=== PATIENT | female | born 1980 | race American Indian/Alaskan Native ===

== ENCOUNTER 2020-07-02 01:02 | Inpatient (IN) | payer MEDICAID ==
--- NOTE | 2020-07-02 01:37 | EDM.PDOC ---
ED HPI GENERAL MEDICAL PROBLEM - General Chief Complaint: Respiratory Problem Stated Complaint: WEAK Time Seen by Provider: 07/02/20 01:36 Source of Information: Reports: Patient, Significant Other History Limitations: Reports: No Limitations - History of Present Illness INITIAL COMMENTS - FREE TEXT/NARRATIVE: Patient presents emergency room today secondary to concerns about increasing shortness of breath difficulty breathing she states that she has been admitted 2 times over the last couple of months to [facility] in [place] that admission was in May and she was discharged on the is related to her acute asthma exacerbation and pneumonia she was sent home last admission on a prednisone taper as well as Levaquin she did have follow-up after discharge approximately 2 weeks ago she states that that time she did have some wheezing but otherwise seem to be improving after that things have slowly gotten worse again she does do home nebulizers in the last 2 to 3 days she states that she has been using them fairly regularly stating that she is using them almost hourly they also have a home park pulse ox monitor and it was reported tonight to be 50% she could not walk because of shortness of breath and difficulty breathing so they came to the ER for further evaluation been tested several times over the last couple months for Covid and has been negative per their report she denies any positive Covid testing [place] any fevers chills chest pain discomfort primary complaint is weakness and difficulty breathing. --per CHANNEL BUSINESS MANAGER upon arrival/placement to monitors noted for p/o-72%RA, required increase to 5L nc before sats >90% PMH--asthma, DM2--insulin therapy Meds--dulera, duonebulizer, novalog sliding scale (no long-term insulin), singulair Allergies--tramadol, cefcazolin Tob--1 pack per week EtOH/Drugs--denies denies pain Pain Score (Numeric/FACES): 0 - Related Data Allergies Allergy/AdvReac Type Severity Reaction Status Date / Time cefprozil Allergy Airway Verified 07/02/20 02:35 Tightness tramadol Allergy Hives Verified 07/02/20 01:50 Home Meds: Home Meds Albuterol [Ventolin HFA] 1 - 2 inh INH ASDIRECTED PRN 07/02/20 [History] Albuterol/Ipratropium [DuoNeb 3.0-0.5 MG/3 ML] 3 ml INH ASDIRECTED PRN 07/02/20 [History] Formoterol/Mometasone [Dulera 100 MCG/5 MCG] 2 inh INH BID 07/02/20 [History] Insulin Aspart [NovoLOG] 2 units SUBCUT ASDIRECTED 07/02/20 [History] Montelukast [Singulair] 10 mg PO DAILY 07/02/20 [History] ED ROS GENERAL - Review of Systems Review Of Systems: See Below Constitutional: Reports: Weakness, Fatigue HEENT: Reports: No Symptoms Respiratory: Reports: Shortness of Breath, Wheezing, Cough Cardiovascular: Reports: Dyspnea on Exertion. Denies: Chest Pain, Palpitations Endocrine: Reports: No Symptoms GI/Abdominal: Reports: No Symptoms : Reports: No Symptoms Musculoskeletal: Reports: No Symptoms Skin: Reports: No Symptoms Neurological: Reports: No Symptoms Psychiatric: Reports: No Symptoms Hematologic/Lymphatic: Reports: No Symptoms Immunologic: Reports: No Symptoms ED EXAM, GENERAL - Physical Exam Exam: See Below Exam Limited By: No Limitations General Appearance: Alert, Moderate Distress (due to respiratory status) Eye Exam: Bilateral Eye: EOMI, Normal Inspection, PERRL Ears: Normal External Exam Nose: Normal Inspection Throat/Mouth: Normal Inspection, Normal Lips, Normal Oropharynx (patient reports dry mouth/throat) Head: Atraumatic, Normocephalic Neck: Normal Inspection, Supple, Non-Tender, Full Range of Motion. No: Lymphadenopathy (R), Lymphadenopathy (L) Respiratory/Chest: Respiratory Distress (patient noted to be conversationally dyspneic/speech somewhat interrupted; noted to be dyspenic/tachypneic; no splinting), Decreased Breath Sounds, Rhonchi, Wheezing Cardiovascular: Normal Peripheral Pulses, No Edema, No Murmur, Tachycardia Peripheral Pulses: 2+: Radial (L), Radial (R) GI/Abdominal: Normal Bowel Sounds, Soft, Non-Tender, No Distention (Female) Exam: Deferred Rectal (Female) Exam: Deferred Extremities: Normal Inspection, Normal Range of Motion, No Pedal Edema Neurological: Alert, Oriented, Normal Cognition, No Motor/Sensory Deficits Psychiatric: Normal Affect, Normal Mood Skin Exam: Warm, Dry, Intact, Normal Color Course - Vital Signs Text/Narrative:: 0247--patient has completed duonebulizer x 1 hour, improvement in respiratory status/oxygen need has decreased to 4L. she reports feeling improved. labs reviewed, noted for low mag--1.6. will give 2g Mag rider which will help re plenish as well as may improve respiratory status/asthma symptoms. COVID/influenza testing is still pending. chest film appears bilateral patchy may be due to poor effort secondary to acute dyspnea or atypical pneumonia. case has been d/w Yuko Bedoya, WATCH ASSEMBLY INSTRUCTOR Mixing Technician for admission, accepts at this time. Due to CPN allergy and reported recent treatment with levaquin will give IV doxycycline for possible infectious process Last Recorded V/S: Last Vital Signs Temp 98.1 F 07/02/20 02:35 Pulse 114 H 07/02/20 02:35 Resp 23 H 07/02/20 02:35 BP 117/63 07/02/20 02:35 Pulse Ox 94 L 07/02/20 02:35 - Orders/Labs/Meds Orders: Active Orders 24 hr Category Date Time Status Peripheral IV Care [RC] . DIRECTED Care 07/02/20 01:53 Active Pulse Oximetry [RC] CONTINUOUS Care 07/02/20 01:52 Active RT Aerosol Therapy [RC] ASDIRECTED Care 07/02/20 01:53 Active Chest 1V Frontal [CR] Urgent Exams 07/02/20 01:51 Taken COVID-19/FLU A+B/RSV [MOLEC] Stat Lab 07/02/20 01:57 Ordered Magnesium Sulfate 2 GM in Water @ 25 MLS/HR (50ml) Med 07/02/20 02:45 Ordered Magnesium Sulfate/Water [Magnesium Sulfate in Water 2 GM/50 ML] 2 gm in 50 ml IV ONETIME Sodium Chloride 0.9% [Saline Flush] Med 07/02/20 01:51 Active 10 ml FLUSH ASDIRECTED PRN Isolation [COMM] Stat Oth 07/02/20 01:57 Ordered Peripheral IV Insertion Adult [OM.PC] Urgent Oth 07/02/20 01:51 Ordered Medication Orders Magnesium Sulfate (Magnesium Sulfate In Water 2 Gm/50 Ml) 2 gm in 50 mls @ 25 mls/hr IV ONETIME ONE Stop: 07/02/20 04:44 Sodium Chloride (Sodium Chloride 0.9% 10 Ml Syringe) 10 ml FLUSH ASDIRECTED PRN PRN Reason: Keep Vein Open Last Admin: 07/02/20 02:22 Dose: 10 ml Documented by: MARIVEL Labs: Laboratory Tests 07/02/20 07/02/20 Range/Units 02:19 02:19 WBC 15.2 H (4.5-11.0) K/uL RBC 4.82 (3.30-5.50) M/uL Hgb 12.8 (12.0-15.0) g/dL Hct 41.1 (36.0-48.0) % MCV 85 (80-98) fL MCH 27 (27-31) pg MCHC 31 L (32-36) % Plt Count 522 H (150-400) K/uL Neut % (Auto) 71 H (36-66) % Lymph % (Auto) 18 L (24-44) % [place] % (Auto) 10 H (2-6) % Eos % (Auto) 1 L (2-4) % Baso % (Auto) 0 (0-1) % Sodium 142 (140-148) mmol/L Potassium 4.1 (3.6-5.2) mmol/L Chloride 101 (100-108) mmol/L Carbon Dioxide 30 (21-32) mmol/L Anion Gap 11.2 (5.0-14.0) mmol/L BUN 6 L (7-18) mg/dL Creatinine 0.6 (0.6-1.0) mg/dL Est Cr Clr Drug Dosing 129.50 mL/min Estimated GFR (MDRD) > 60 (>60) Glucose 104 (74-106) mg/dL Calcium 9.1 (8.5-10.1) mg/dL Magnesium 1.6 L (1.8-2.4) mg/dL Meds: Medications Generic Name Dose Route Start Last Admin Trade Name Freq PRN Reason Stop Dose Admin Magnesium Sulfate 2 gm in 50 mls @ 25 mls/hr 07/02/20 02:45 Magnesium Sulfate In Water 2 Gm/50 Ml IV 07/02/20 04:44 ONETIME ONE Sodium Chloride 10 ml 07/02/20 01:51 07/02/20 02:22 Sodium Chloride 0.9% 10 Ml Syringe FLUSH 10 ml ASDIRECTED PRN Administration Keep Vein Open Discontinued Medications Generic Name Dose Route Start Last Admin Trade Name Freq PRN Reason Stop Dose Admin Albuterol/Ipratropium 3 ml 07/02/20 01:51 07/02/20 02:21 Albuterol/Ipratropium 3.0-0.5 Mg/3 Ml Neb Soln NEB 07/02/20 01:52 3 ml .CONTINUOUS ONE Administration Methylprednisolone Sodium Succinate 125 mg 07/02/20 01:51 07/02/20 02:21 Methylprednisolone Sodium Succinate 125 Mg/2 Ml Sdv IV 07/02/20 01:52 125 mg ONETIME ONE Administration - Radiology Interpretation Free Text/Narrative:: 0250--chest 1V with bilateral scattered changes suggestive of atypical pneumonia process on preliminary reading, final radiology reading pending at this time Departure - Departure Time of Disposition: 02:53 Disposition: Admitted As Inpatient 68 Clinical Impression: Acute asthma exacerbation, Hypoxia, Hypomagnesemia - Discharge Information *PRESCRIPTION DRUG MONITORING PROGRAM REVIEWED*: Not Applicable *COPY OF PRESCRIPTION DRUG MONITORING REPORT IN PATIENT MATT: Not Applicable Referrals: PCP,None [Primary Care Provider] - Forms: ED Department Discharge Sepsis Event Note (ED) - Focused Exam Vital Signs: Vital Signs Temp Pulse Resp BP Pulse Ox 07/02/20 02:35 98.1 F 114 H 23 H 117/63 94 L 07/02/20 02:04 98.4 F 115 H 26 H 110/63 95 07/02/20 01:51 98.4 F 115 H 26 H 110/63 95 - My Orders Last 24 Hours: My Active Orders 07/02/20 01:51 Chest 1V Frontal [CR] Urgent Sodium Chloride 0.9% [Saline Flush] 10 ml FLUSH ASDIRECTED PRN Peripheral IV Insertion Adult [OM.PC] Urgent 07/02/20 01:52 Pulse Oximetry [RC] CONTINUOUS 07/02/20 01:53 Peripheral IV Care [RC] . DIRECTED RT Aerosol Therapy [RC] ASDIRECTED 07/02/20 01:57 COVID-19/FLU A+B/RSV [MOLEC] Stat Isolation [COMM] Stat 07/02/20 02:45 Magnesium Sulfate 2 GM in Water @ 25 MLS/HR (50ml) Magnesium Sulfate/Water [Magnesium Sulfate in Water 2 GM/50 ML] 2 gm in 50 ml IV ONETIME - Assessment/Plan Last 24 Hours: My Active Orders 07/02/20 01:51 Chest 1V Frontal [CR] Urgent Sodium Chloride 0.9% [Saline Flush] 10 ml FLUSH ASDIRECTED PRN Peripheral IV Insertion Adult [OM.PC] Urgent 07/02/20 01:52 Pulse Oximetry [RC] CONTINUOUS 07/02/20 01:53 Peripheral IV Care [RC] . DIRECTED RT Aerosol Therapy [RC] ASDIRECTED 07/02/20 01:57 COVID-19/FLU A+B/RSV [MOLEC] Stat Isolation [COMM] Stat 07/02/20 02:45 Magnesium Sulfate 2 GM in Water @ 25 MLS/HR (50ml) Magnesium Sulfate/Water [Magnesium Sulfate in Water 2 GM/50 ML] 2 gm in 50 ml IV ONETIME
[2020-07-02] MEDS ORDERED: Sodium Chloride 0.9% 10 ML Syringe FLUSH PRN (01:51)
[2020-07-02] MEDS ORDERED: methylPREDNISolone Sodium Succinate 125 MG/2 ML SDV IV ONE (01:51)
[2020-07-02] MEDS ORDERED: Albuterol/Ipratropium 3.0-0.5 MG/3 ML Neb Soln NEB ONE (01:51)
[2020-07-02] MEDS ORDERED: Magnesium Sulfate/Water 2 GM/50 ML BAG IV ONE (02:45)
[2020-07-02] MEDS ORDERED: Doxycycline 100 MG in Sodium Chloride 0.9% 100 ML IV ONE (02:55)
[2020-07-02 02:56] LABS: CORONAVIRUS COVID-19 NAA NEGATIVE (NEGATIVE)
--- NOTE | 2020-07-02 04:25 | PCM.HP.2 ---
H&P History of Present Illness - General Date of Service: 07/02/20 Source of Information: Patient, Provider, RN History Limitations: Reports: No Limitations - History of Present Illness Initial Comments - Free Text/Narative: chief complaint: Asthma- wheezing and shortness of breath Patient presents emergency room today secondary to concerns about increasing shortness of breath difficulty breathing she states that she has been admitted 2 times over the last couple of months to [facility] in [place] that admission was in May and she was discharged on the is related to her acute asthma exacerbation and pneumonia she was sent home last admission on a prednisone taper as well as Levaquin she did have follow-up after discharge approximately 2 weeks ago she states that that time she did have some wheezing but otherwise s eem to be improving after that things have slowly gotten worse again she does do home nebulizers in the last 2 to 3 days she states that she has been using them fairly regularly stating that she is using them almost hourly they also have a home park pulse ox monitor and it was reported tonight to be 50% she could not walk because of shortness of breath and difficulty breathing so they came to the ER for further evaluation been tested several times over the last couple months for Covid and has been negative per their report she denies any positive Covid testing [place] any fevers chills chest pain discomfort primary complaint is weakness and difficulty breathing. --per DIRECTOR OF HOME ECONOMICS upon arrival/placement to monitors noted for p/o-72%RA, required increase to 5L nc before sats >90% PMH--asthma, DM2--insulin therapy Meds--dulera, duonebulizer, novalog sliding scale (no long-term insulin), singulair Allergies--tramadol, cefcazolin Tob--1 pack per week EtOH/Drugs--denies Onset of Symptoms: Reports: Gradual Symptom Onset Date: 06/30/20 Duration of Symptoms: Reports: Getting Worse Location: Reports: Chest, Generalized Quality: Reports: Same as Previous Episode Severity: Moderate Improves with: Reports: Medication Worsens with: Reports: Movement Context: Reports: Other (asthma) Associated Symptoms: Reports: Cough, Fever/Chills (chills without fever), Shortness of Breath denies pain Pain Score (Numeric/FACES): 0 - Related Data Allergies/Adverse Reactions: Allergies Allergy/AdvReac Type Severity Reaction Status Date / Time cefprozil Allergy Airway Verified 07/02/20 02:35 Tightness tramadol Allergy Hives Verified 07/02/20 01:50 Home Medications: Home Meds Albuterol [Ventolin HFA] 1 - 2 inh INH ASDIRECTED PRN 07/02/20 [History] Albuterol/Ipratropium [DuoNeb 3.0-0.5 MG/3 ML] 3 ml INH ASDIRECTED PRN 07/02/20 [History] Formoterol/Mometasone [Dulera 100 MCG/5 MCG] 2 inh INH BID 07/02/20 [History] Insulin Aspart [NovoLOG] 2 units SUBCUT ASDIRECTED 07/02/20 [History] Montelukast [Singulair] 10 mg PO DAILY 07/02/20 [History] Past Medical History HEENT History: Reports: Impaired Vision, Other (See Below) Other HEENT History: glasses Respiratory History: Reports: Asthma, Pneumonia, Recurrent Genitourinary History: Reports: Other (See Below) Other Genitourinary History: dialysis for one month due to decreased kidney function Neurological History: Reports: Concussion Endocrine/Metabolic History: Reports: Diabetes, Type II - Infectious Disease History Infectious Disease History: Reports: Chicken Pox - Past Surgical History GI Surgical History: Reports: Cholecystectomy Social & Family History - Tobacco Use Tobacco Use Status *Q: Current Every Day Tobacco User Years of Tobacco use: 5 Packs/Tins Daily: 0.2 - Recreational Drug Use Recreational Drug Use: No - Living Situation & Occupation Living situation: Reports: Occupation: Unemployed ( to her , lives in [place]. was in Long Term for 10 months, now at home with home monitoring. She did notify DOC about her current admission.) H&P Review of Systems - Review of Systems: Review Of Systems: See Below General: Reports: Chills, Malaise, Fatigue, Decreased Appetite HEENT: Reports: No Symptoms Pulmonary: Reports: Shortness of Breath, Wheezing, Pleuritic Chest Pain, Cough Cardiovascular: Reports: No Symptoms Gastrointestinal: Reports: No Symptoms Genitourinary: Reports: No Symptoms Musculoskeletal: Reports: No Symptoms Skin: Reports: No Symptoms Psychiatric: Reports: No Symptoms Neurological: Reports: No Symptoms Hematologic/Lymphatic: Reports: No Symptoms Immunologic: Reports: No Symptoms Exam - Exam Exam: See Below - Vital Signs Vital Signs: Last Vital Signs Temp 97.9 F 07/02/20 03:40 Pulse 107 H 07/02/20 03:40 Resp 25 H 07/02/20 03:40 BP 130/76 07/02/20 03:40 Pulse Ox 95 07/02/20 03:40 Weight: 200 lb 6.403 oz - Exam Quality Assessment: Supplemental Oxygen (4l via NC), DVT Prophylaxis General: Alert, Oriented, Cooperative, Moderate Distress HEENT: PERRLA, Conjunctiva Clear, EACs Clear, EOMI, Hearing Intact, Mucosa Moist & [place] Neck: Supple, Trachea Midline, 2 Lungs: Decreased Breath Sounds, Crackles, Wheezing (diffuse bilateral wheezing) Cardiovascular: Regular Rate, Regular Rhythm GI/Abdominal Exam: Normal Bowel Sounds, Soft, Non-Tender, No Organomegaly, No Distention, No Abnormal Bruit, No Mass, Pelvis Stable (Female) Exam: Deferred Rectal (Female) Exam: Deferred Back Exam: Normal Inspection, Full Range of Motion, NT Extremities: Normal Inspection, Normal Range of Motion, Non-Tender, No Pedal Edema, Normal Capillary Refill Skin: Warm, Dry, Intact Neurological: Cranial Nerves Intact, Reflexes Equal Bilateral Neuro Extensive - Mental Status: Alert, Oriented x3, Normal Mood/Affect, Normal Cognition Neuro Extensive - Motor, Sensory, Reflexes: CN II-XII Intact, Normal Gait, Normal Reflexes Psychiatric: Alert, Normal Affect, Normal Mood - Patient Data Lab Results Last 24 hrs: Laboratory Results - last 24 hr 07/02/20 07/02/20 07/02/20 Range/Units 01:57 02:19 02:19 WBC 15.2 H (4.5-11.0) K/uL RBC 4.82 (3.30-5.50) M/uL Hgb 12.8 (12.0-15.0) g/dL Hct 41.1 (36.0-48.0) % MCV 85 (80-98) fL MCH 27 (27-31) pg MCHC 31 L (32-36) % Plt Count 522 H (150-400) K/uL Neut % (Auto) 71 H (36-66) % Lymph % (Auto) 18 L (24-44) % [place] % (Auto) 10 H (2-6) % Eos % (Auto) 1 L (2-4) % Baso % (Auto) 0 (0-1) % Sodium 142 (140-148) mmol/L Potassium 4.1 (3.6-5.2) mmol/L Chloride 101 (100-108) mmol/L Carbon Dioxide 30 (21-32) mmol/L Anion Gap 11.2 (5.0-14.0) mmol/L BUN 6 L (7-18) mg/dL Creatinine 0.6 (0.6-1.0) mg/dL Est Cr Clr Drug Dosing 129.50 mL/min Estimated GFR (MDRD) > 60 (>60) Glucose 104 (74-106) mg/dL Calcium 9.1 (8.5-10.1) mg/dL Magnesium 1.6 L (1.8-2.4) mg/dL Influenza Type A RNA Negative (NEGATIVE) RSV RNA (INAAT) Negative (NEGATIVE) Influenza Type B RNA Negative (NEGATIVE) SARS-CoV-2 RNA (HEMAL) Negative (NEGATIVE) Result Diagrams: 07/02/20 02:19 07/02/20 02:19 Sepsis Event Note - Evaluation Sepsis Screening Result: Possible Sepsis Risk - Focused Exam Vital Signs: Vital Signs Temp Pulse Resp BP Pulse Ox 07/02/20 03:40 97.9 F 107 H 25 H 130/76 95 07/02/20 02:35 98.1 F 114 H 23 H 117/63 94 L 07/02/20 02:04 98.4 F 115 H 26 H 110/63 95 07/02/20 01:51 98.4 F 115 H 26 H 110/63 95 - Problem List (1) Acute asthma exacerbation SNOMED Code(s): 342565941 ICD Code: J45.901 - UNSPECIFIED ASTHMA WITH (ACUTE) EXACERBATION Status: Acute Priority: High Current Visit: Yes Qualifiers: Asthma severity: severe (2) Hypomagnesemia SNOMED Code(s): 844557110 ICD Code: E83.42 - HYPOMAGNESEMIA Status: Acute Priority: High Current Visit: Yes (3) Diabetes mellitus type 2 in obese SNOMED Code(s): 94192014 ICD Code: E11.69 - TYPE 2 DIABETES MELLITUS WITH OTHER SPECIFIED COMPLICATION; E66.9 - OBESITY, UNSPECIFIED Status: Acute Priority: High Current Visit: Yes Problem List Initiated/Reviewed/Updated: Yes Orders Last 24hrs: Active Orders 24 hr Category Date Time Status Peripheral IV Care [RC] . DIRECTED Care 07/02/20 01:53 Active Pulse Oximetry [RC] CONTINUOUS Care 07/02/20 01:52 Active RT Aerosol Therapy [RC] ASDIRECTED Care 07/02/20 01:53 Active Chest 1V Frontal [CR] Urgent Exams 07/02/20 01:51 Taken Magnesium Sulfate/Water [Magnesium Sulfate in Water 2 Med 07/02/20 02:45 Active GM/50 ML] 2 gm in 50 ml IV ONETIME Sodium Chloride 0.9% [Saline Flush] Med 07/02/20 01:51 Active 10 ml FLUSH ASDIRECTED PRN Isolation [COMM] Stat Oth 07/02/20 01:57 Ordered Peripheral IV Insertion Adult [OM.PC] Urgent Oth 07/02/20 01:51 Ordered Medication Orders Magnesium Sulfate (Magnesium Sulfate In Water 2 Gm/50 Ml) 2 gm in 50 mls @ 25 mls/hr IV ONETIME ONE Stop: 07/02/20 04:44 Sodium Chloride (Sodium Chloride 0.9% 10 Ml Syringe) 10 ml FLUSH ASDIRECTED PRN PRN Reason: Keep Vein Open Last Admin: 07/02/20 02:22 Dose: 10 ml Documented by: MARIVEL Assessment/Plan Comment:: Assessment/Plan Comment:: ASSESSMENT AND PLAN OF CARE Asthma exacerbation with pneumonia -Admit to [address] [place] [address] for further monitoring -IV Fluids for rehydration NS at 125 mL per hour -IV Antibiotic- Doxycycline 100 mg IV every 12 hours -oxygen to keep sats greater than 95% -IV Solumedrol 125mg now, then 40 mg every 8 hours f -schedule Duo nebs every 6 hours, Albuterol nebs every 4 hours prn -Advise to notify nurses of any chest pain or other symptoms Hypomagnesium - given IV Magnesium 2 grams once -recheck Magnesium Diabetes type 2- in obesity -sliding scale medium dose -bedside blood glucose before meals and at bedtime Maintenance issues -Orders home meds: chronic medication -Nutrition: consisisten charb diet -Ramos catheter -not indicated at this time -DVT Lovenox 30 mg subcut -PPI - IV Protonix 40mg daily Tobacco dependence - declincs nicotine patches and nicotine gum CODE STATUS: FULL Admission status: Admit to [address] [place] [address] Admission justification. This patient will be admitted for inpatient services and is medically appropriate meeting medical necessity for inpatient admission as outlined in my documentation. I reasonably expect the patient will require inpatient services that span. Time over 2 midnights. I reasonably expect this patient to be discharged or transferred within 96 hours after admission to the critical [facility]. Disposition: home with Family Primary care provider: Dr. Brent Palacios, [facility] Hospitalist: Dr. Hayden - Mortality Measure Prognosis:: Good
[2020-07-02] MEDS ORDERED: Bisacodyl 5 MG Tab PO PRN (05:09)
[2020-07-02] MEDS ORDERED: LORazepam 2 MG/ML SDV IV PRN ×2 (05:09→14:50)
[2020-07-02] MEDS ORDERED: Sodium Chloride 0.9% 1,000 ML IV SCH (05:09)
[2020-07-02] MEDS ORDERED: Ondansetron 4 MG/2 ML SDV IV PRN (05:09)
[2020-07-02] MEDS ORDERED: Ondansetron 4 MG Tab.DIS PO PRN (05:09)
[2020-07-02] MEDS ORDERED: Acetaminophen 325 MG Tab PO PRN (05:09)
[2020-07-02] MEDS ORDERED: Docusate Sodium 100 MG Cap PO PRN (05:09)
[2020-07-02] MEDS ORDERED: Morphine 2 MG/ML SYRINGE IVPUSH PRN (05:09)
[2020-07-02] MEDS ORDERED: Ibuprofen 800 MG Tab PO PRN (05:09)
[2020-07-02] MEDS ORDERED: Acetaminophen/HYDROcodone 325-5 MG Tab PO PRN (05:09)
[2020-07-02] MEDS ORDERED: Albuterol/Ipratropium 3.0-0.5 MG/3 ML Neb Soln NEB SCH (06:00)
[2020-07-02] MEDS: Insulin Lispro 100 Unit/ML 3 ML KwikPen SUBCUT SCH ×4 (08:29→21:14)
[2020-07-02] MEDS: Formoterol/Mometasone 100-5 MCG 8.8 GM Inhaler IH SCH ×2 (08:30→21:14)
[2020-07-02] MEDS ORDERED: Pantoprazole 40 MG Vial IV SCH (09:00)
[2020-07-02] MEDS ORDERED: Levofloxacin/Dextrose 5%-Water 750 MG in Premix Bag 1 BAG IV SCH (09:00)
--- NOTE | 2020-07-02 09:16 | CR ---
CHEST: Portable 07/02/2020 at 2:15 AM CLINICAL HISTORY:SOB, wheezing COMPARISON:None FINDINGS: There is a right upper lobe infiltrate. There is diffuse prominence of the lung markings with a predominantly interstitial pattern. There are no effusions. Heart and pulmonary vascular are normal. IMPRESSION: Right upper lobe pneumonic infiltrate with diffuse increase in lung markings suggests superimposed diffuse pneumonitis
[2020-07-02] MEDS: methylPREDNISolone Sodium Succinate 40 MG/1 ML SDV IVPUSH SCH ×3 (09:51→21:13)
[2020-07-02] MEDS: Enoxaparin 40 MG/0.4 ML Syringe SUBCUT SCH (09:51)
[2020-07-02] MEDS: Lactobacillus Rhamnosus GG (Probiotic) Cap PO SCH ×2 (09:51→21:14)
[2020-07-02] MEDS: Montelukast 10 MG Tab PO SCH (09:51)
[2020-07-02] MEDS: Piperacillin/Tazobactam/Dext 3.375 GM in Premix Bag 1 BAG IV SCH ×3 (09:54→21:27)
[2020-07-02] MEDS: Albuterol/Ipratropium 3.0-0.5 MG/3 ML Neb Soln NEB SCH ×3 (10:38→21:13)
[2020-07-02] MEDS: Levofloxacin/Dextrose 5%-Water 750 MG in Premix Bag 1 BAG IV SCH (10:54)
[2020-07-02] MEDS ORDERED: Sodium Chloride 0.9% 10 ML Syringe FLUSH ONE (11:42)
[2020-07-02] MEDS ORDERED: Iopamidol 612 MG/ML 100 ML Bottle IV SCH (11:45)
[2020-07-02] MEDS ORDERED: Sodium Chloride 0.9% 75 ML IV SCH (11:45)
--- NOTE | 2020-07-02 12:52 | CT ---
Chest w Cont CLINICAL HISTORY: Recurrent pneumonia, hypoxia TECHNIQUE: Axial scans were obtained from the thoracic inlet to the lung bases following IV infusion of iodinated contrast. Auto dosage reduction and iterative reconstructrion techniques employed. COMPARISON: None. FINDINGS: Lung window images shows scattered patchy groundglass opacities diffusely throughout both lung acuna. There are no areas of consolidation. No pulmonary mass is identified. There is a pleural-based 7 mm nodule in the right middle lobe laterally. There is an 8 x 11 mm pleural-based noncalcified subsolid nodule in the lingula. Mediastinal window images show some mildly prominent lymph nodes in both lingula. These are likely reactive nodes. No suspicious lymphadenopathy is identified. The pulmonary arteries are less than optimally opacified. No obvious filling defects are identified. The aorta is free of aneurysm or dissection. Scans into the upper abdomen show no mass or adenopathy. IMPRESSION: Diffuse groundglass opacifications throughout both lung acuna consistent with pneumonitis Pleural-based nodular densities described above. Follow-up per Fleischner Society criteria recommended FLEISCHNER CRITERIA (2017) Incidental Pulmonary Nodule Follow-up Nodule size 6-8 mm -single nodule in low risk patient: CT at 6-12 months, then consider CT at 18-24 months -multiple nodules in low risk patient: CT at 3-6 months, then consider CT at 18-24 months -single nodule in high risk patient: CT at 6-12 months, then CT at 18-24 months -multiple nodules in high risk patient: CT at 3-6 months, then CT at 18-24 months Implications for Patient Care 1. These guidelines apply to incidental nodules, which can be managed according to the specific recommendations. 2. These guidelines do not apply to patients younger than 35 years, immunocompromised patients, or patients with cancer. 3. For lung cancer screening, adherence to the existing [employer] Lung CT Screening Reporting and Data System (Lung-RADS) guidelines is recommended.
--- NOTE | 2020-07-02 14:59 | PCM.PN ---
- General Info Date of Service: 07/02/20 Subjective Update: Ms. Galarza is a 39-year-old woman who was admitted through the emergency department with weakness, shortness of breath, hypoxia, secondary to bilateral pneumonia and asthma exacerbation. This is her third admission over the past few months with similar symptoms. She reports that after hospitalization she feels well for a few days and then redevelops progressive shortness of breath and cough. CT scan obtained today shows bilateral diffuse groundglass infiltrates. Functional Status: Reports: Tolerating Diet, Urinating - Review of Systems General: Reports: Weakness, Fatigue. Denies: Fever, Chills Pulmonary: Reports: Shortness of Breath, Cough, Wheezing. Denies: Pleuritic Chest Pain, Sputum, Hemoptysis Cardiovascular: Reports: Dyspnea on Exertion. Denies: Chest Pain, Palpitations, Orthopnea, PND, Edema, Lightheadedness Gastrointestinal: Reports: No Symptoms Genitourinary: Reports: No Symptoms - Patient Data Vitals - Most Recent: Last Vital Signs Temp 97.5 F 07/02/20 07:00 Pulse 102 H 07/02/20 10:39 Resp 18 07/02/20 07:00 BP 128/77 07/02/20 07:00 Pulse Ox 93 L 07/02/20 13:20 Weight - Most Recent: 198 lb 6.656 oz I&O - Last 24 Hours: Intake & Output 07/01/20 07/02/20 07/02/20 22:59 06:59 14:59 Intake Total 610 Balance 610 Lab Results Last 24 Hours: Laboratory Results - last 24 hr 07/02/20 07/02/20 07/02/20 Range/Units 01:57 02:19 02:19 WBC 15.2 H (4.5-11.0) K/uL RBC 4.82 (3.30-5.50) M/uL Hgb 12.8 (12.0-15.0) g/dL Hct 41.1 (36.0-48.0) % MCV 85 (80-98) fL MCH 27 (27-31) pg MCHC 31 L (32-36) % Plt Count 522 H (150-400) K/uL Neut % (Auto) 71 H (36-66) % Lymph % (Auto) 18 L (24-44) % Bulloch % (Auto) 10 H (2-6) % Eos % (Auto) 1 L (2-4) % Baso % (Auto) 0 (0-1) % Sodium 142 (140-148) mmol/L Potassium 4.1 (3.6-5.2) mmol/L Chloride 101 (100-108) mmol/L Carbon Dioxide 30 (21-32) mmol/L Anion Gap 11.2 (5.0-14.0) mmol/L BUN 6 L (7-18) mg/dL Creatinine 0.6 (0.6-1.0) mg/dL Est Cr Clr Drug Dosing 129.50 mL/min Estimated GFR (MDRD) > 60 (>60) Glucose 104 (74-106) mg/dL POC Glucose (74-106) MG/DL Calcium 9.1 (8.5-10.1) mg/dL Magnesium 1.6 L (1.8-2.4) mg/dL Influenza Type A RNA Negative (NEGATIVE) RSV RNA (INAAT) Negative (NEGATIVE) Influenza Type B RNA Negative (NEGATIVE) SARS-CoV-2 RNA (HEMAL) Negative (NEGATIVE) 07/02/20 07/02/20 07/02/20 Range/Units 07:39 11:25 11:25 WBC (4.5-11.0) K/uL RBC (3.30-5.50) M/uL Hgb (12.0-15.0) g/dL Hct (36.0-48.0) % MCV (80-98) fL MCH (27-31) pg MCHC (32-36) % Plt Count (150-400) K/uL Neut % (Auto) (36-66) % Lymph % (Auto) (24-44) % Bulloch % (Auto) (2-6) % Eos % (Auto) (2-4) % Baso % (Auto) (0-1) % Sodium (140-148) mmol/L Potassium (3.6-5.2) mmol/L Chloride (100-108) mmol/L Carbon Dioxide (21-32) mmol/L Anion Gap (5.0-14.0) mmol/L BUN (7-18) mg/dL Creatinine (0.6-1.0) mg/dL Est Cr Clr Drug Dosing mL/min Estimated GFR (MDRD) (>60) Glucose (74-106) mg/dL POC Glucose 176 H TNP 168 H (74-106) MG/DL Calcium (8.5-10.1) mg/dL Magnesium (1.8-2.4) mg/dL Influenza Type A RNA (NEGATIVE) RSV RNA (INAAT) (NEGATIVE) Influenza Type B RNA (NEGATIVE) SARS-CoV-2 RNA (HEMAL) (NEGATIVE) Med Orders - Current: Current Medications Acetaminophen (Acetaminophen 325 Mg Tab) 650 mg PO Q4H PRN PRN Reason: Pain (Mild 1-3)/fever Hydrocodone Bitart/Acetaminophen (Acetaminophen/Hydrocodone 325-5 Mg Tab) 1 tab PO Q4H PRN PRN Reason: Pain (moderate 4-6) Albuterol (Albuterol 0.083% 2.5 Mg/3 Ml Neb Soln) 2.5 mg NEB Q4H PRN PRN Reason: Shortness Of Breath/wheezing Albuterol/Ipratropium (Albuterol/Ipratropium 3.0-0.5 Mg/3 Ml Neb Soln) 3 ml NEB QIDRT [facility] Last Admin: 07/02/20 14:37 Dose: 3 ml Documented by: Bisacodyl (Bisacodyl 5 Mg Tab) 5 mg PO DAILY PRN PRN Reason: Constipation Docusate Sodium (Docusate Sodium 100 Mg Cap) 100 mg PO BID PRN PRN Reason: Constipation Enoxaparin Sodium (Enoxaparin 40 Mg/0.4 Ml Syringe) 40 mg SUBCUT DAILY [facility] Last Admin: 07/02/20 09:51 Dose: 40 mg Documented by: Piperacillin/Tazobactam/ (Dextrose 3.375 gm/ Premix) 50 mls @ 100 mls/hr IV Q6H [facility] Last Admin: 07/02/20 09:54 Dose: 100 mls/hr Documented by: Levofloxacin/Dextrose 750 mg/ (Premix) 150 mls @ 100 mls/hr IV Q24H [facility] Last Admin: 07/02/20 10:54 Dose: 100 mls/hr Documented by: Ibuprofen (Ibuprofen 800 Mg Tab) 800 mg PO Q6H PRN PRN Reason: Pain (mild 1-3) Insulin Human Lispro (Insulin Lispro 100 Unit/Ml 3 Ml Kwikpen) 0 unit SUBCUT QIDACANDBED [facility]; Protocol Last Admin: 07/02/20 12:04 Dose: 1 unit Documented by: Lactobacillus Rhamnosus (Lactobacillus Rhamnosus Gg (Probiotic) Cap) 1 cap PO BID [facility] Last Admin: 07/02/20 09:51 Dose: 1 cap Documented by: Lorazepam (Lorazepam 2 Mg/Ml Sdv) 0.5 mg IV Q4H PRN PRN Reason: Agitation Methylprednisolone Sodium Succinate (Methylprednisolone Sodium Succinate 40 Mg/1 Ml Sdv) 40 mg IVPUSH Q6H [facility] Last Admin: 07/02/20 09:51 Dose: 40 mg Documented by: Mometasone Furoate/Formoterol Fumar (Formoterol/Mometasone 100-5 Mcg 8.8 Gm Inhaler) 2 puff IH BIDRT [facility] Last Admin: 07/02/20 08:30 Dose: 2 puff Documented by: Montelukast Sodium (Montelukast 10 Mg Tab) 10 mg PO DAILY [facility] Last Admin: 07/02/20 09:51 Dose: 10 mg Documented by: Morphine Sulfate (Morphine 2 Mg/Ml Syringe) 2 mg IVPUSH Q2H PRN PRN Reason: Pain (severe 7-10) Ondansetron HCl (Ondansetron 4 Mg Tab.Dis) 4 mg PO Q6H PRN PRN Reason: Nausea able to take PO Ondansetron HCl (Ondansetron 4 Mg/2 Ml Sdv) 4 mg IV Q4H PRN PRN Reason: Nausea/Vomiting Pantoprazole Sodium (Pantoprazole 40 Mg Tab.Cr) 40 mg PO ACBREAKFAST [facility] Sodium Chloride (Sodium Chloride 0.9% 10 Ml Syringe) 10 ml FLUSH ASDIRECTED PRN PRN Reason: Keep Vein Open Last Admin: 07/02/20 02:22 Dose: 10 ml Documented by: Discontinued Medications Albuterol/Ipratropium (Albuterol/Ipratropium 3.0-0.5 Mg/3 Ml Neb Soln) 3 ml NEB .CONTINUOUS ONE Stop: 07/02/20 01:52 Last Admin: 07/02/20 02:21 Dose: 3 ml Documented by: Albuterol/Ipratropium (Albuterol/Ipratropium 3.0-0.5 Mg/3 Ml Neb Soln) 3 ml NEB QID [facility] Last Admin: 07/02/20 05:48 Dose: 3 ml Documented by: Magnesium Sulfate (Magnesium Sulfate In Water 2 Gm/50 Ml) 2 gm in 50 mls @ 25 mls/hr IV ONETIME ONE Stop: 07/02/20 04:44 Last Admin: 07/02/20 04:42 Dose: 25 mls/hr Documented by: Doxycycline Hyclate 100 mg/ (Sodium Chloride) 100 mls @ 100 mls/hr IV ONETIME ONE Stop: 07/02/20 03:54 Last Admin: 07/02/20 03:38 Dose: 100 mls/hr Documented by: Doxycycline Hyclate 100 mg/ (Sodium Chloride) 100 mls @ 100 mls/hr IV Q12H [facility] Sodium Chloride (Normal Saline) 1,000 mls @ 125 mls/hr IV ASDIRECTED [facility] Last Admin: 07/02/20 05:49 Dose: 125 mls/hr Documented by: Levofloxacin/Dextrose 750 mg/ (Premix) 150 mls @ 100 mls/hr IV Q24H [facility] Sodium Chloride (Normal Saline) 75 mls @ 3 mls/sec IV ASDIRECTED [facility] Stop: 07/02/20 11:46 Last Admin: 07/02/20 12:22 Dose: 3 mls/sec Documented by: Iopamidol (Iopamidol 612 Mg/Ml 100 Ml Bottle) 100 ml IV . DIRECTED [facility] Stop: 07/02/20 11:46 Last Admin: 07/02/20 12:23 Dose: 100 ml Documented by: Lorazepam (Lorazepam 2 Mg/Ml Sdv) 1 mg IV Q6H PRN PRN Reason: Agitation Methylprednisolone Sodium Succinate (Methylprednisolone Sodium Succinate 125 Mg/2 Ml Sdv) 125 mg IV ONETIME ONE Stop: 07/02/20 01:52 Last Admin: 07/02/20 02:21 Dose: 125 mg Documented by: Pantoprazole Sodium (Pantoprazole 40 Mg Vial) 40 mg IV DAILY [facility] Last Admin: 07/02/20 09:51 Dose: 40 mg Documented by: Sodium Chloride (Sodium Chloride 0.9% 10 Ml Syringe) 10 ml FLUSH ONETIME ONE Stop: 07/02/20 11:43 Last Admin: 07/02/20 12:23 Dose: 10 ml Documented by: - Exam Quality Assessment: Supplemental Oxygen, DVT Prophylaxis General: Alert, Oriented, Cooperative, Moderate Distress Lungs: Decreased Breath Sounds, Rhonchi, Wheezing. No: Crackles, Rales Cardiovascular: Regular Rate, Regular Rhythm, No Murmurs GI/Abdominal Exam: Soft, Non-Tender, No Organomegaly, No Distention Extremities: Non-Tender, No Pedal Edema - Patient Data Lab Results Last 24 hrs: Laboratory Results - last 24 hr 07/02/20 07/02/20 07/02/20 Range/Units 01:57 02:19 02:19 WBC 15.2 H (4.5-11.0) K/uL RBC 4.82 (3.30-5.50) M/uL Hgb 12.8 (12.0-15.0) g/dL Hct 41.1 (36.0-48.0) % MCV 85 (80-98) fL MCH 27 (27-31) pg MCHC 31 L (32-36) % Plt Count 522 H (150-400) K/uL Neut % (Auto) 71 H (36-66) % Lymph % (Auto) 18 L (24-44) % Bulloch % (Auto) 10 H (2-6) % Eos % (Auto) 1 L (2-4) % Baso % (Auto) 0 (0-1) % Sodium 142 (140-148) mmol/L Potassium 4.1 (3.6-5.2) mmol/L Chloride 101 (100-108) mmol/L Carbon Dioxide 30 (21-32) mmol/L Anion Gap 11.2 (5.0-14.0) mmol/L BUN 6 L (7-18) mg/dL Creatinine 0.6 (0.6-1.0) mg/dL Est Cr Clr Drug Dosing 129.50 mL/min Estimated GFR (MDRD) > 60 (>60) Glucose 104 (74-106) mg/dL POC Glucose (74-106) MG/DL Calcium 9.1 (8.5-10.1) mg/dL Magnesium 1.6 L (1.8-2.4) mg/dL Influenza Type A RNA Negative (NEGATIVE) RSV RNA (INAAT) Negative (NEGATIVE) Influenza Type B RNA Negative (NEGATIVE) SARS-CoV-2 RNA (HEMAL) Negative (NEGATIVE) 07/02/20 07/02/20 07/02/20 Range/Units 07:39 11:25 11:25 WBC (4.5-11.0) K/uL RBC (3.30-5.50) M/uL Hgb (12.0-15.0) g/dL Hct (36.0-48.0) % MCV (80-98) fL MCH (27-31) pg MCHC (32-36) % Plt Count (150-400) K/uL Neut % (Auto) (36-66) % Lymph % (Auto) (24-44) % Bulloch % (Auto) (2-6) % Eos % (Auto) (2-4) % Baso % (Auto) (0-1) % Sodium (140-148) mmol/L Potassium (3.6-5.2) mmol/L Chloride (100-108) mmol/L Carbon Dioxide (21-32) mmol/L Anion Gap (5.0-14.0) mmol/L BUN (7-18) mg/dL Creatinine (0.6-1.0) mg/dL Est Cr Clr Drug Dosing mL/min Estimated GFR (MDRD) (>60) Glucose (74-106) mg/dL POC Glucose 176 H TNP 168 H (74-106) MG/DL Calcium (8.5-10.1) mg/dL Magnesium (1.8-2.4) mg/dL Influenza Type A RNA (NEGATIVE) RSV RNA (INAAT) (NEGATIVE) Influenza Type B RNA (NEGATIVE) SARS-CoV-2 RNA (HEMAL) (NEGATIVE) Result Diagrams: 07/02/20 02:19 07/02/20 02:19 Sepsis Event Note - Evaluation Sepsis Screening Result: Sepsis Risk - Focused Exam Vital Signs: Vital Signs Temp Temp Pulse Resp BP Pulse Ox 07/02/20 13:20 93 L 07/02/20 10:39 102 H 07/02/20 07:00 97.5 F 108 H 18 128/77 92 L 07/02/20 05:45 107 H 07/02/20 05:29 97.3 F 102 H 18 126/71 91 L 07/02/20 03:40 97.9 F 107 H 25 H 130/76 95 - Problem List Review Problem List Initiated/Reviewed/Updated: Yes - My Orders Last 24 Hours: My Active Orders 07/02/20 09:00 Lactobacillus Rhamnosus GG [Culturelle] 1 cap PO BID Piperacillin/Tazobactam/Dext [Zosyn in Dextrose Iso-Osmotic 3.375 GM/50 ML] 3.375 gm Premix Bag 1 bag IV Q6H 07/02/20 10:00 Levofloxacin/Dextrose 5%-Water [Levaquin in D5W 750 MG/150 ML] 750 mg Premix Bag 1 bag IV Q24H 07/02/20 14:49 Convert IV to Saline Lock [OM.PC] Routine 07/02/20 14:50 LORazepam [Ativan] 0.5 mg IV Q4H PRN 07/03/20 05:00 CBC WITH AUTO DIFF [HEME] Timed COMPREHENSIVE METABOLIC PN,CMP [CHEM] Timed MAGNESIUM [CHEM] Timed - Plan Plan:: ASSESSMENT AND PLAN Asthma exacerbation with pneumonia-progressive increase in shortness of breath with cough since her last admission 1 month ago. On admission was noted to be significantly hypoxic with oxygen saturation of 70%. CT scan of the chest shows diffuse bilateral pulmonary infiltrates. -Saline lock IV -IV Antibiotic-levofloxacin and Zosyn -oxygen to keep sats greater than 95% -IV Solumedrol 40 mg every 8 hours -schedule Duo nebs every 6 hours, Albuterol nebs every 4 hours prn -Advise to notify nurses of any chest pain or other symptoms Hypomagnesium - given IV Magnesium 2 grams once -recheck Magnesium in a.m. Diabetes type 2- in obesity -sliding scale medium dose -bedside blood glucose before meals and at bedtime Maintenance issues -Nutrition: consistent charb diet -Ramos catheter -not indicated at this time -DVT Lovenox 30 mg subcut -PPI - IV Protonix 40mg daily Tobacco dependence - declincs nicotine patches and nicotine gum CODE STATUS: FULL Admission status: Admit to [address] [place] [address]. This patient will be admitted for inpatient services and is medically appropriate meeting medical necessity for inpatient admission as outlined in my documentation. I reasonably expect the patient will require inpatient services that span. Time over 2 midnights. I reasonably expect this patient to be discharged or transferred within 96 hours after admission to the critical access hospital. Disposition: home with Family Primary care provider: Dr. Brent Palacios, [facility] Hospitalist: Dr. Hayden
[2020-07-02] MEDS ORDERED: Doxycycline 100 MG in Sodium Chloride 0.9% 100 ML IV SCH (16:00)
[2020-07-03] MEDS: methylPREDNISolone Sodium Succinate 40 MG/1 ML SDV IVPUSH SCH ×4 (03:25→20:15)
[2020-07-03] MEDS: Piperacillin/Tazobactam/Dext 3.375 GM in Premix Bag 1 BAG IV SCH ×4 (03:31→20:13)
[2020-07-03] MEDS: Albuterol 0.083% 2.5 MG/3 ML Neb Soln NEB PRN ×2 (03:35→22:30)
[2020-07-03] MEDS: Albuterol/Ipratropium 3.0-0.5 MG/3 ML Neb Soln NEB SCH ×4 (07:20→20:12)
[2020-07-03] MEDS: Formoterol/Mometasone 100-5 MCG 8.8 GM Inhaler IH SCH ×2 (07:21→20:13)
[2020-07-03] MEDS: Insulin Lispro 100 Unit/ML 3 ML KwikPen SUBCUT SCH ×4 (07:58→21:34)
[2020-07-03] MEDS: Pantoprazole 40 MG Tab.CR PO SCH (07:59)
[2020-07-03] MEDS: Lactobacillus Rhamnosus GG (Probiotic) Cap PO SCH ×2 (09:46→20:15)
[2020-07-03] MEDS: Montelukast 10 MG Tab PO SCH (09:46)
[2020-07-03] MEDS: Enoxaparin 40 MG/0.4 ML Syringe SUBCUT SCH (09:47)
[2020-07-03] MEDS: Levofloxacin/Dextrose 5%-Water 750 MG in Premix Bag 1 BAG IV SCH (10:52)
--- NOTE | 2020-07-03 16:41 | PCM.PN ---
- General Info Date of Service: 07/03/20 Subjective Update: Ms. Handley continues to require supplemental oxygen. She reports subjectively that she is feeling better with less shortness of breath and cough. She has remained afebrile and vital signs have been within desired range. Functional Status: Reports: Tolerating Diet, Urinating - Review of Systems General: Reports: Weakness, Fatigue. Denies: Fever, Chills Pulmonary: Reports: Shortness of Breath, Cough, Wheezing. Denies: Pleuritic Chest Pain, Sputum, Hemoptysis Cardiovascular: Reports: Dyspnea on Exertion. Denies: Chest Pain, Palpitations, Orthopnea, PND, Edema, Lightheadedness Gastrointestinal: Reports: No Symptoms - Patient Data Vitals - Most Recent: Last Vital Signs Temp 96.8 F L 07/03/20 11:03 Pulse 90 07/03/20 15:36 Resp 16 07/03/20 11:03 BP 109/67 07/03/20 11:03 Pulse Ox 95 07/03/20 15:36 Weight - Most Recent: 198 lb 6.656 oz I&O - Last 24 Hours: Intake & Output 07/03/20 07/03/20 07/03/20 06:59 14:59 22:59 Intake Total 50 500 Balance 50 500 Lab Results Last 24 Hours: Laboratory Results - last 24 hr 07/02/20 07/02/20 07/02/20 Range/Units 11:30 16:30 21:08 WBC (4.5-11.0) K/uL RBC (3.30-5.50) M/uL Hgb (12.0-15.0) g/dL Hct (36.0-48.0) % MCV (80-98) fL MCH (27-31) pg MCHC (32-36) % Plt Count (150-400) K/uL Neut % (Auto) (36-66) % Lymph % (Auto) (24-44) % Geary % (Auto) (2-6) % Eos % (Auto) (2-4) % Baso % (Auto) (0-1) % Sodium (140-148) mmol/L Potassium (3.6-5.2) mmol/L Chloride (100-108) mmol/L Carbon Dioxide (21-32) mmol/L Anion Gap (5.0-14.0) mmol/L BUN (7-18) mg/dL Creatinine (0.6-1.0) mg/dL Est Cr Clr Drug Dosing mL/min Estimated GFR (MDRD) (>60) Glucose (74-106) mg/dL POC Glucose TNP TNP 175 H Calcium (8.5-10.1) mg/dL Magnesium (1.8-2.4) mg/dL Total Bilirubin (0.2-1.0) mg/dL AST (15-37) U/L ALT (12-78) U/L Alkaline Phosphatase (46-116) U/L Total Protein (6.4-8.2) g/dL Albumin (3.4-5.0) g/dL Globulin (2.3-3.5) g/dL Albumin/Globulin Ratio (1.2-2.2) 07/03/20 07/03/20 07/03/20 Range/Units 05:56 05:56 11:32 WBC 14.4 H (4.5-11.0) K/uL RBC 4.68 (3.30-5.50) M/uL Hgb 12.6 (12.0-15.0) g/dL Hct 40.2 (36.0-48.0) % MCV 86 (80-98) fL MCH 27 (27-31) pg MCHC 31 L (32-36) % Plt Count 598 H (150-400) K/uL Neut % (Auto) 90 H (36-66) % Lymph % (Auto) 5 L (24-44) % Geary % (Auto) 4 (2-6) % Eos % (Auto) 0 L (2-4) % Baso % (Auto) 0 (0-1) % Sodium 142 (140-148) mmol/L Potassium 3.9 (3.6-5.2) mmol/L Chloride 103 (100-108) mmol/L Carbon Dioxide 27 (21-32) mmol/L Anion Gap 12.3 (5.0-14.0) mmol/L BUN 11 D (7-18) mg/dL Creatinine 0.9 (0.6-1.0) mg/dL Est Cr Clr Drug Dosing 86.68 mL/min Estimated GFR (MDRD) > 60 (>60) Glucose 232 H (74-106) mg/dL POC Glucose 162 H Calcium 9.0 (8.5-10.1) mg/dL Magnesium 2.0 (1.8-2.4) mg/dL Total Bilirubin 0.3 (0.2-1.0) mg/dL AST 68 H (15-37) U/L ALT 48 (12-78) U/L Alkaline Phosphatase 119 H (46-116) U/L Total Protein 7.0 (6.4-8.2) g/dL Albumin 2.5 L (3.4-5.0) g/dL Globulin 4.5 H (2.3-3.5) g/dL Albumin/Globulin Ratio 0.6 L (1.2-2.2) 07/03/20 Range/Units 16:09 WBC (4.5-11.0) K/uL RBC (3.30-5.50) M/uL Hgb (12.0-15.0) g/dL Hct (36.0-48.0) % MCV (80-98) fL MCH (27-31) pg MCHC (32-36) % Plt Count (150-400) K/uL Neut % (Auto) (36-66) % Lymph % (Auto) (24-44) % Geary % (Auto) (2-6) % Eos % (Auto) (2-4) % Baso % (Auto) (0-1) % Sodium (140-148) mmol/L Potassium (3.6-5.2) mmol/L Chloride (100-108) mmol/L Carbon Dioxide (21-32) mmol/L Anion Gap (5.0-14.0) mmol/L BUN (7-18) mg/dL Creatinine (0.6-1.0) mg/dL Est Cr Clr Drug Dosing mL/min Estimated GFR (MDRD) (>60) Glucose (74-106) mg/dL POC Glucose 200 H Calcium (8.5-10.1) mg/dL Magnesium (1.8-2.4) mg/dL Total Bilirubin (0.2-1.0) mg/dL AST (15-37) U/L ALT (12-78) U/L Alkaline Phosphatase (46-116) U/L Total Protein (6.4-8.2) g/dL Albumin (3.4-5.0) g/dL Globulin (2.3-3.5) g/dL Albumin/Globulin Ratio (1.2-2.2) Med Orders - Current: Current Medications Acetaminophen (Acetaminophen 325 Mg Tab) 650 mg PO Q4H PRN PRN Reason: Pain (Mild 1-3)/fever Hydrocodone Bitart/Acetaminophen (Acetaminophen/Hydrocodone 325-5 Mg Tab) 1 tab PO Q4H PRN PRN Reason: Pain (moderate 4-6) Albuterol (Albuterol 0.083% 2.5 Mg/3 Ml Neb Soln) 2.5 mg NEB Q4H PRN PRN Reason: Shortness Of Breath/wheezing Last Admin: 07/03/20 03:35 Dose: 2.5 mg Documented by: Albuterol/Ipratropium (Albuterol/Ipratropium 3.0-0.5 Mg/3 Ml Neb Soln) 3 ml NEB QIDRT [facility] Last Admin: 07/03/20 14:39 Dose: 3 ml Documented by: Bisacodyl (Bisacodyl 5 Mg Tab) 5 mg PO DAILY PRN PRN Reason: Constipation Docusate Sodium (Docusate Sodium 100 Mg Cap) 100 mg PO BID PRN PRN Reason: Constipation Enoxaparin Sodium (Enoxaparin 40 Mg/0.4 Ml Syringe) 40 mg SUBCUT DAILY [facility] Last Admin: 07/03/20 09:47 Dose: 40 mg Documented by: Piperacillin/Tazobactam/ (Dextrose 3.375 gm/ Premix) 50 mls @ 100 mls/hr IV Q6H [facility] Last Admin: 07/03/20 15:54 Dose: 100 mls/hr Documented by: Levofloxacin/Dextrose 750 mg/ (Premix) 150 mls @ 100 mls/hr IV Q24H [facility] Last Admin: 07/03/20 10:52 Dose: 100 mls/hr Documented by: Ibuprofen (Ibuprofen 800 Mg Tab) 800 mg PO Q6H PRN PRN Reason: Pain (mild 1-3) Insulin Human Lispro (Insulin Lispro 100 Unit/Ml 3 Ml Kwikpen) 0 unit SUBCUT QIDACANDBED [facility]; Protocol Last Admin: 07/03/20 16:29 Dose: 2 unit Documented by: Lactobacillus Rhamnosus (Lactobacillus Rhamnosus Gg (Probiotic) Cap) 1 cap PO BID [facility] Last Admin: 07/03/20 09:46 Dose: 1 cap Documented by: Lorazepam (Lorazepam 2 Mg/Ml Sdv) 0.5 mg IV Q4H PRN PRN Reason: Agitation Methylprednisolone Sodium Succinate (Methylprednisolone Sodium Succinate 40 Mg/1 Ml Sdv) 40 mg IVPUSH Q6H [facility] Last Admin: 07/03/20 15:54 Dose: 40 mg Documented by: Mometasone Furoate/Formoterol Fumar (Formoterol/Mometasone 100-5 Mcg 8.8 Gm Inhaler) 2 puff IH BIDRT [facility] Last Admin: 07/03/20 07:21 Dose: 2 puff Documented by: Montelukast Sodium (Montelukast 10 Mg Tab) 10 mg PO DAILY [facility] Last Admin: 07/03/20 09:46 Dose: 10 mg Documented by: Morphine Sulfate (Morphine 2 Mg/Ml Syringe) 2 mg IVPUSH Q2H PRN PRN Reason: Pain (severe 7-10) Ondansetron HCl (Ondansetron 4 Mg Tab.Dis) 4 mg PO Q6H PRN PRN Reason: Nausea able to take PO Ondansetron HCl (Ondansetron 4 Mg/2 Ml Sdv) 4 mg IV Q4H PRN PRN Reason: Nausea/Vomiting Pantoprazole Sodium (Pantoprazole 40 Mg Tab.Cr) 40 mg PO ACBREAKFAST [facility] Last Admin: 07/03/20 07:59 Dose: 40 mg Documented by: Sodium Chloride (Sodium Chloride 0.9% 10 Ml Syringe) 10 ml FLUSH ASDIRECTED PRN PRN Reason: Keep Vein Open Last Admin: 07/02/20 02:22 Dose: 10 ml Documented by: Discontinued Medications Albuterol/Ipratropium (Albuterol/Ipratropium 3.0-0.5 Mg/3 Ml Neb Soln) 3 ml NEB .CONTINUOUS ONE Stop: 07/02/20 01:52 Last Admin: 07/02/20 02:21 Dose: 3 ml Documented by: Albuterol/Ipratropium (Albuterol/Ipratropium 3.0-0.5 Mg/3 Ml Neb Soln) 3 ml NEB QID [facility] Last Admin: 07/02/20 05:48 Dose: 3 ml Documented by: Magnesium Sulfate (Magnesium Sulfate In Water 2 Gm/50 Ml) 2 gm in 50 mls @ 25 mls/hr IV ONETIME ONE Stop: 07/02/20 04:44 Last Admin: 07/02/20 04:42 Dose: 25 mls/hr Documented by: Doxycycline Hyclate 100 mg/ (Sodium Chloride) 100 mls @ 100 mls/hr IV ONETIME ONE Stop: 07/02/20 03:54 Last Admin: 07/02/20 03:38 Dose: 100 mls/hr Documented by: Doxycycline Hyclate 100 mg/ (Sodium Chloride) 100 mls @ 100 mls/hr IV Q12H [facility] Sodium Chloride (Normal Saline) 1,000 mls @ 125 mls/hr IV ASDIRECTED [facility] Last Admin: 07/02/20 05:49 Dose: 125 mls/hr Documented by: Sodium Chloride (Normal Saline) 75 mls @ 3 mls/sec IV ASDIRECTED [facility] Stop: 07/02/20 11:46 Last Admin: 07/02/20 12:22 Dose: 3 mls/sec Documented by: Iopamidol (Iopamidol 612 Mg/Ml 100 Ml Bottle) 100 ml IV . DIRECTED [facility] Stop: 07/02/20 11:46 Last Admin: 07/02/20 12:23 Dose: 100 ml Documented by: Lorazepam (Lorazepam 2 Mg/Ml Sdv) 1 mg IV Q6H PRN PRN Reason: Agitation Methylprednisolone Sodium Succinate (Methylprednisolone Sodium Succinate 125 Mg/2 Ml Sdv) 125 mg IV ONETIME ONE Stop: 07/02/20 01:52 Last Admin: 07/02/20 02:21 Dose: 125 mg Documented by: Pantoprazole Sodium (Pantoprazole 40 Mg Vial) 40 mg IV DAILY [facility] Last Admin: 07/02/20 09:51 Dose: 40 mg Documented by: Sodium Chloride (Sodium Chloride 0.9% 10 Ml Syringe) 10 ml FLUSH ONETIME ONE Stop: 07/02/20 11:43 Last Admin: 07/02/20 12:23 Dose: 10 ml Documented by: - Exam Quality Assessment: Supplemental Oxygen General: Alert, Oriented, Cooperative, Mild Distress Lungs: Normal Respiratory Effort, Decreased Breath Sounds, Rhonchi, Wheezing. No: Crackles, Rales Cardiovascular: Regular Rate, Regular Rhythm, No Murmurs GI/Abdominal Exam: Soft, Non-Tender, No Organomegaly, No Distention Extremities: Non-Tender, No Pedal Edema - Patient Data Lab Results Last 24 hrs: Laboratory Results - last 24 hr 07/02/20 07/02/20 07/02/20 Range/Units 11:30 16:30 21:08 WBC (4.5-11.0) K/uL RBC (3.30-5.50) M/uL Hgb (12.0-15.0) g/dL Hct (36.0-48.0) % MCV (80-98) fL MCH (27-31) pg MCHC (32-36) % Plt Count (150-400) K/uL Neut % (Auto) (36-66) % Lymph % (Auto) (24-44) % Geary % (Auto) (2-6) % Eos % (Auto) (2-4) % Baso % (Auto) (0-1) % Sodium (140-148) mmol/L Potassium (3.6-5.2) mmol/L Chloride (100-108) mmol/L Carbon Dioxide (21-32) mmol/L Anion Gap (5.0-14.0) mmol/L BUN (7-18) mg/dL Creatinine (0.6-1.0) mg/dL Est Cr Clr Drug Dosing mL/min Estimated GFR (MDRD) (>60) Glucose (74-106) mg/dL POC Glucose TNP TNP 175 H Calcium (8.5-10.1) mg/dL Magnesium (1.8-2.4) mg/dL Total Bilirubin (0.2-1.0) mg/dL AST (15-37) U/L ALT (12-78) U/L Alkaline Phosphatase (46-116) U/L Total Protein (6.4-8.2) g/dL Albumin (3.4-5.0) g/dL Globulin (2.3-3.5) g/dL Albumin/Globulin Ratio (1.2-2.2) 07/03/20 07/03/20 07/03/20 Range/Units 05:56 05:56 11:32 WBC 14.4 H (4.5-11.0) K/uL RBC 4.68 (3.30-5.50) M/uL Hgb 12.6 (12.0-15.0) g/dL Hct 40.2 (36.0-48.0) % MCV 86 (80-98) fL MCH 27 (27-31) pg MCHC 31 L (32-36) % Plt Count 598 H (150-400) K/uL Neut % (Auto) 90 H (36-66) % Lymph % (Auto) 5 L (24-44) % Geary % (Auto) 4 (2-6) % Eos % (Auto) 0 L (2-4) % Baso % (Auto) 0 (0-1) % Sodium 142 (140-148) mmol/L Potassium 3.9 (3.6-5.2) mmol/L Chloride 103 (100-108) mmol/L Carbon Dioxide 27 (21-32) mmol/L Anion Gap 12.3 (5.0-14.0) mmol/L BUN 11 D (7-18) mg/dL Creatinine 0.9 (0.6-1.0) mg/dL Est Cr Clr Drug Dosing 86.68 mL/min Estimated GFR (MDRD) > 60 (>60) Glucose 232 H (74-106) mg/dL POC Glucose 162 H Calcium 9.0 (8.5-10.1) mg/dL Magnesium 2.0 (1.8-2.4) mg/dL Total Bilirubin 0.3 (0.2-1.0) mg/dL AST 68 H (15-37) U/L ALT 48 (12-78) U/L Alkaline Phosphatase 119 H (46-116) U/L Total Protein 7.0 (6.4-8.2) g/dL Albumin 2.5 L (3.4-5.0) g/dL Globulin 4.5 H (2.3-3.5) g/dL Albumin/Globulin Ratio 0.6 L (1.2-2.2) 07/03/20 Range/Units 16:09 WBC (4.5-11.0) K/uL RBC (3.30-5.50) M/uL Hgb (12.0-15.0) g/dL Hct (36.0-48.0) % MCV (80-98) fL MCH (27-31) pg MCHC (32-36) % Plt Count (150-400) K/uL Neut % (Auto) (36-66) % Lymph % (Auto) (24-44) % Geary % (Auto) (2-6) % Eos % (Auto) (2-4) % Baso % (Auto) (0-1) % Sodium (140-148) mmol/L Potassium (3.6-5.2) mmol/L Chloride (100-108) mmol/L Carbon Dioxide (21-32) mmol/L Anion Gap (5.0-14.0) mmol/L BUN (7-18) mg/dL Creatinine (0.6-1.0) mg/dL Est Cr Clr Drug Dosing mL/min Estimated GFR (MDRD) (>60) Glucose (74-106) mg/dL POC Glucose 200 H Calcium (8.5-10.1) mg/dL Magnesium (1.8-2.4) mg/dL Total Bilirubin (0.2-1.0) mg/dL AST (15-37) U/L ALT (12-78) U/L Alkaline Phosphatase (46-116) U/L Total Protein (6.4-8.2) g/dL Albumin (3.4-5.0) g/dL Globulin (2.3-3.5) g/dL Albumin/Globulin Ratio (1.2-2.2) Result Diagrams: 07/03/20 05:56 07/03/20 05:56 Sepsis Event Note - Evaluation Sepsis Screening Result: No Definite Risk - Focused Exam Vital Signs: Vital Signs Temp Pulse Resp BP BP Pulse Ox 07/03/20 15:36 90 95 07/03/20 14:40 90 07/03/20 13:06 94 L 07/03/20 11:22 86 07/03/20 11:03 96.8 F L 86 16 109/67 92 L 07/03/20 07:22 76 07/03/20 07:03 91 L 07/03/20 07:00 97.1 F 16 113/60 94 L - Problem List Review Problem List Initiated/Reviewed/Updated: Yes - My Orders Last 24 Hours: My Active Orders 07/03/20 21:00 GLUCOSE POC LAB TO COLLECT JPM [POC] QIDACANDBED 07/04/20 05:00 BASIC METABOLIC PANEL,BMP [CHEM] Timed CBC WITH AUTO DIFF [HEME] Timed 07/04/20 07:30 GLUCOSE POC LAB TO COLLECT JPM [POC] QIDACANDBED 07/04/20 11:30 GLUCOSE POC LAB TO COLLECT JPM [POC] QIDACANDBED 07/04/20 16:30 GLUCOSE POC LAB TO COLLECT JPM [POC] QIDACANDBED 07/04/20 21:00 GLUCOSE POC LAB TO COLLECT JPM [POC] QIDACANDBED 07/05/20 07:30 GLUCOSE POC LAB TO COLLECT JPM [POC] QIDACANDBED 07/05/20 11:30 GLUCOSE POC LAB TO COLLECT JPM [POC] QIDACANDBED 07/05/20 16:30 GLUCOSE POC LAB TO COLLECT JPM [POC] QIDACANDBED 07/05/20 21:00 GLUCOSE POC LAB TO COLLECT JPM [POC] QIDACANDBED 07/06/20 07:30 GLUCOSE POC LAB TO COLLECT JPM [POC] QIDACANDBED 07/06/20 11:30 GLUCOSE POC LAB TO COLLECT JPM [POC] QIDACANDBED 07/06/20 16:30 GLUCOSE POC LAB TO COLLECT JPM [POC] QIDACANDBED 07/06/20 21:00 GLUCOSE POC LAB TO COLLECT JPM [POC] QIDACANDBED - Plan Plan:: ASSESSMENT AND PLAN Asthma exacerbation with pneumonia-since admission with mild to moderate improvement in shortness of breath and cough -Saline lock IV -IV Antibiotic-levofloxacin and Zosyn -oxygen to keep sats greater than 95% -IV Solumedrol 40 mg every 8 hours -schedule Duo nebs every 6 hours, Albuterol nebs every 4 hours prn Hypomagnesium -resolved Diabetes type 2- in obesity -sliding scale medium dose -bedside blood glucose before meals and at bedtime Maintenance issues -Nutrition: consistent charb diet -Ramos catheter -not indicated at this time -DVT Lovenox 30 mg subcut -PPI - IV Protonix 40mg daily Tobacco dependence - declincs nicotine patches and nicotine gum CODE STATUS: FULL Admission status: Admit to [address] [place] [address] Admission justification. This patient will be admitted for inpatient services and is medically appropriate meeting medical necessity for inpatient admission as outlined in my documentation. I reasonably expect the patient will require inpatient services that span. Time over 2 midnights. I reasonably expect this patient to be discharged or transferred within 96 hours after admission to the critical [facility] hospital. Disposition: home with Family Primary care provider: Dr. Brent Palacios, [facility] Hospitalist: Dr. Hayden
[2020-07-04] MEDS: methylPREDNISolone Sodium Succinate 40 MG/1 ML SDV IVPUSH SCH ×4 (03:58→21:18)
[2020-07-04] MEDS: Piperacillin/Tazobactam/Dext 3.375 GM in Premix Bag 1 BAG IV SCH ×4 (03:59→21:34)
[2020-07-04] MEDS: Albuterol/Ipratropium 3.0-0.5 MG/3 ML Neb Soln NEB SCH ×4 (07:12→21:16)
[2020-07-04] MEDS: Formoterol/Mometasone 100-5 MCG 8.8 GM Inhaler IH SCH ×2 (07:12→21:15)
[2020-07-04] MEDS: Montelukast 10 MG Tab PO SCH (09:36)
[2020-07-04] MEDS: Pantoprazole 40 MG Tab.CR PO SCH (09:37)
[2020-07-04] MEDS: Lactobacillus Rhamnosus GG (Probiotic) Cap PO SCH ×2 (09:37→21:14)
[2020-07-04] MEDS: Enoxaparin 40 MG/0.4 ML Syringe SUBCUT SCH (09:37)
[2020-07-04] MEDS: Insulin Lispro 100 Unit/ML 3 ML KwikPen SUBCUT SCH ×4 (09:39→21:39)
[2020-07-04] MEDS: Levofloxacin/Dextrose 5%-Water 750 MG in Premix Bag 1 BAG IV SCH (09:45)
--- NOTE | 2020-07-04 16:21 | PCM.PN ---
- General Info Date of Service: 07/04/20 Subjective Update: Ms. Galarza has shown improvement over the last 24 hours with less shortness of breath and cough. Overall energy level and appetite have improved significantly. Vital signs have remained stable and she has been afebrile. Functional Status: Reports: Tolerating Diet, Ambulating, Urinating - Review of Systems General: Reports: Weakness, Fatigue. Denies: Fever, Chills Pulmonary: Reports: Shortness of Breath, Cough, Wheezing. Denies: Pleuritic Chest Pain, Sputum, Hemoptysis Cardiovascular: Reports: Dyspnea on Exertion. Denies: Chest Pain, Palpitations, Orthopnea, PND, Edema, Lightheadedness Gastrointestinal: Reports: No Symptoms Genitourinary: Reports: No Symptoms - Patient Data Vitals - Most Recent: Last Vital Signs Temp 95.7 F L 07/04/20 15:02 Pulse 64 07/04/20 15:02 Resp 20 07/04/20 15:02 BP 122/65 07/04/20 15:02 Pulse Ox 94 L 07/04/20 15:02 Weight - Most Recent: 198 lb 6.656 oz I&O - Last 24 Hours: Intake & Output 07/04/20 07/04/20 07/04/20 06:59 14:59 22:59 Intake Total 830 450 Balance 830 450 Lab Results Last 24 Hours: Laboratory Results - last 24 hr 07/03/20 07/04/20 07/04/20 Range/Units 21:23 05:58 05:58 WBC 18.0 H (4.5-11.0) K/uL RBC 4.63 (3.30-5.50) M/uL Hgb 12.4 (12.0-15.0) g/dL Hct 40.4 (36.0-48.0) % MCV 87 (80-98) fL MCH 27 (27-31) pg MCHC 31 L (32-36) % Plt Count 586 H (150-400) K/uL Neut % (Auto) 90 H (36-66) % Lymph % (Auto) 5 L (24-44) % [place] % (Auto) 5 (2-6) % Eos % (Auto) 0 L (2-4) % Baso % (Auto) 0 (0-1) % Sodium 142 (140-148) mmol/L Potassium 4.6 (3.6-5.2) mmol/L Chloride 102 (100-108) mmol/L Carbon Dioxide 32 (21-32) mmol/L Anion Gap 8.1 (5.0-14.0) mmol/L BUN 13 (7-18) mg/dL Creatinine 0.7 (0.6-1.0) mg/dL Est Cr Clr Drug Dosing 111.44 mL/min Estimated GFR (MDRD) > 60 (>60) Glucose 153 H (74-106) mg/dL POC Glucose 180 H (74-106) mg/dL Calcium 9.2 (8.5-10.1) mg/dL 07/04/20 07/04/20 Range/Units 07:33 11:47 WBC (4.5-11.0) K/uL RBC (3.30-5.50) M/uL Hgb (12.0-15.0) g/dL Hct (36.0-48.0) % MCV (80-98) fL MCH (27-31) pg MCHC (32-36) % Plt Count (150-400) K/uL Neut % (Auto) (36-66) % Lymph % (Auto) (24-44) % [place] % (Auto) (2-6) % Eos % (Auto) (2-4) % Baso % (Auto) (0-1) % Sodium (140-148) mmol/L Potassium (3.6-5.2) mmol/L Chloride (100-108) mmol/L Carbon Dioxide (21-32) mmol/L Anion Gap (5.0-14.0) mmol/L BUN (7-18) mg/dL Creatinine (0.6-1.0) mg/dL Est Cr Clr Drug Dosing mL/min Estimated GFR (MDRD) (>60) Glucose (74-106) mg/dL POC Glucose 169 H 191 H (74-106) mg/dL Calcium (8.5-10.1) mg/dL Med Orders - Current: Current Medications Acetaminophen (Acetaminophen 325 Mg Tab) 650 mg PO Q4H PRN PRN Reason: Pain (Mild 1-3)/fever Hydrocodone Bitart/Acetaminophen (Acetaminophen/Hydrocodone 325-5 Mg Tab) 1 tab PO Q4H PRN PRN Reason: Pain (moderate 4-6) Albuterol (Albuterol 0.083% 2.5 Mg/3 Ml Neb Soln) 2.5 mg NEB Q4H PRN PRN Reason: Shortness Of Breath/wheezing Last Admin: 07/03/20 22:30 Dose: 2.5 mg Documented by: Albuterol/Ipratropium (Albuterol/Ipratropium 3.0-0.5 Mg/3 Ml Neb Soln) 3 ml NEB QIDRT [facility] Last Admin: 07/04/20 14:41 Dose: 3 ml Documented by: Bisacodyl (Bisacodyl 5 Mg Tab) 5 mg PO DAILY PRN PRN Reason: Constipation Docusate Sodium (Docusate Sodium 100 Mg Cap) 100 mg PO BID PRN PRN Reason: Constipation Enoxaparin Sodium (Enoxaparin 40 Mg/0.4 Ml Syringe) 40 mg SUBCUT DAILY [facility] Last Admin: 07/04/20 09:37 Dose: 40 mg Documented by: Piperacillin/Tazobactam/ (Dextrose 3.375 gm/ Premix) 50 mls @ 100 mls/hr IV Q6H [facility] Last Admin: 07/04/20 15:48 Dose: 100 mls/hr Documented by: Levofloxacin/Dextrose 750 mg/ (Premix) 150 mls @ 100 mls/hr IV Q24H [facility] Last Admin: 07/04/20 09:45 Dose: 100 mls/hr Documented by: Ibuprofen (Ibuprofen 800 Mg Tab) 800 mg PO Q6H PRN PRN Reason: Pain (mild 1-3) Insulin Human Lispro (Insulin Lispro 100 Unit/Ml 3 Ml Kwikpen) 0 unit SUBCUT QIDACANDBED [facility]; Protocol Last Admin: 07/04/20 12:39 Dose: 1 unit Documented by: Lactobacillus Rhamnosus (Lactobacillus Rhamnosus Gg (Probiotic) Cap) 1 cap PO BID [facility] Last Admin: 07/04/20 09:37 Dose: 1 cap Documented by: Lorazepam (Lorazepam 2 Mg/Ml Sdv) 0.5 mg IV Q4H PRN PRN Reason: Agitation Methylprednisolone Sodium Succinate (Methylprednisolone Sodium Succinate 40 Mg/1 Ml Sdv) 40 mg IVPUSH Q6H [facility] Last Admin: 07/04/20 15:48 Dose: 40 mg Documented by: Mometasone Furoate/Formoterol Fumar (Formoterol/Mometasone 100-5 Mcg 8.8 Gm Inhaler) 2 puff IH BIDRT [facility] Last Admin: 07/04/20 07:12 Dose: 2 puff Documented by: Montelukast Sodium (Montelukast 10 Mg Tab) 10 mg PO DAILY [facility] Last Admin: 07/04/20 09:36 Dose: 10 mg Documented by: Morphine Sulfate (Morphine 2 Mg/Ml Syringe) 2 mg IVPUSH Q2H PRN PRN Reason: Pain (severe 7-10) Ondansetron HCl (Ondansetron 4 Mg Tab.Dis) 4 mg PO Q6H PRN PRN Reason: Nausea able to take PO Ondansetron HCl (Ondansetron 4 Mg/2 Ml Sdv) 4 mg IV Q4H PRN PRN Reason: Nausea/Vomiting Pantoprazole Sodium (Pantoprazole 40 Mg Tab.Cr) 40 mg PO ACBREAKFAST [facility] Last Admin: 07/04/20 09:37 Dose: 40 mg Documented by: Sodium Chloride (Sodium Chloride 0.9% 10 Ml Syringe) 10 ml FLUSH ASDIRECTED PRN PRN Reason: Keep Vein Open Last Admin: 07/02/20 02:22 Dose: 10 ml Documented by: Discontinued Medications Albuterol/Ipratropium (Albuterol/Ipratropium 3.0-0.5 Mg/3 Ml Neb Soln) 3 ml NEB .CONTINUOUS ONE Stop: 07/02/20 01:52 Last Admin: 07/02/20 02:21 Dose: 3 ml Documented by: Albuterol/Ipratropium (Albuterol/Ipratropium 3.0-0.5 Mg/3 Ml Neb Soln) 3 ml NEB QID [facility] Last Admin: 07/02/20 05:48 Dose: 3 ml Documented by: Magnesium Sulfate (Magnesium Sulfate In Water 2 Gm/50 Ml) 2 gm in 50 mls @ 25 mls/hr IV ONETIME ONE Stop: 07/02/20 04:44 Last Admin: 07/02/20 04:42 Dose: 25 mls/hr Documented by: Doxycycline Hyclate 100 mg/ (Sodium Chloride) 100 mls @ 100 mls/hr IV ONETIME ONE Stop: 07/02/20 03:54 Last Admin: 07/02/20 03:38 Dose: 100 mls/hr Documented by: Doxycycline Hyclate 100 mg/ (Sodium Chloride) 100 mls @ 100 mls/hr IV Q12H [facility] Sodium Chloride (Normal Saline) 1,000 mls @ 125 mls/hr IV ASDIRECTED [facility] Last Admin: 07/02/20 05:49 Dose: 125 mls/hr Documented by: Sodium Chloride (Normal Saline) 75 mls @ 3 mls/sec IV ASDIRECTED [facility] Stop: 07/02/20 11:46 Last Admin: 07/02/20 12:22 Dose: 3 mls/sec Documented by: Iopamidol (Iopamidol 612 Mg/Ml 100 Ml Bottle) 100 ml IV . DIRECTED [facility] Stop: 07/02/20 11:46 Last Admin: 07/02/20 12:23 Dose: 100 ml Documented by: Lorazepam (Lorazepam 2 Mg/Ml Sdv) 1 mg IV Q6H PRN PRN Reason: Agitation Methylprednisolone Sodium Succinate (Methylprednisolone Sodium Succinate 125 Mg/2 Ml Sdv) 125 mg IV ONETIME ONE Stop: 07/02/20 01:52 Last Admin: 07/02/20 02:21 Dose: 125 mg Documented by: Pantoprazole Sodium (Pantoprazole 40 Mg Vial) 40 mg IV DAILY [facility] Last Admin: 07/02/20 09:51 Dose: 40 mg Documented by: Sodium Chloride (Sodium Chloride 0.9% 10 Ml Syringe) 10 ml FLUSH ONETIME ONE Stop: 07/02/20 11:43 Last Admin: 07/02/20 12:23 Dose: 10 ml Documented by: - Exam Quality Assessment: Supplemental Oxygen, DVT Prophylaxis General: Alert, Oriented, Cooperative, Mild Distress Lungs: Decreased Breath Sounds, Rhonchi, Wheezing. No: Crackles, Rales Cardiovascular: Regular Rate, Regular Rhythm, No Murmurs GI/Abdominal Exam: Soft, Non-Tender, No Organomegaly, No Distention Extremities: Non-Tender, No Pedal Edema - Patient Data Lab Results Last 24 hrs: Laboratory Results - last 24 hr 07/03/20 07/04/20 07/04/20 Range/Units 21:23 05:58 05:58 WBC 18.0 H (4.5-11.0) K/uL RBC 4.63 (3.30-5.50) M/uL Hgb 12.4 (12.0-15.0) g/dL Hct 40.4 (36.0-48.0) % MCV 87 (80-98) fL MCH 27 (27-31) pg MCHC 31 L (32-36) % Plt Count 586 H (150-400) K/uL Neut % (Auto) 90 H (36-66) % Lymph % (Auto) 5 L (24-44) % [place] % (Auto) 5 (2-6) % Eos % (Auto) 0 L (2-4) % Baso % (Auto) 0 (0-1) % Sodium 142 (140-148) mmol/L Potassium 4.6 (3.6-5.2) mmol/L Chloride 102 (100-108) mmol/L Carbon Dioxide 32 (21-32) mmol/L Anion Gap 8.1 (5.0-14.0) mmol/L BUN 13 (7-18) mg/dL Creatinine 0.7 (0.6-1.0) mg/dL Est Cr Clr Drug Dosing 111.44 mL/min Estimated GFR (MDRD) > 60 (>60) Glucose 153 H (74-106) mg/dL POC Glucose 180 H (74-106) mg/dL Calcium 9.2 (8.5-10.1) mg/dL 07/04/20 07/04/20 Range/Units 07:33 11:47 WBC (4.5-11.0) K/uL RBC (3.30-5.50) M/uL Hgb (12.0-15.0) g/dL Hct (36.0-48.0) % MCV (80-98) fL MCH (27-31) pg MCHC (32-36) % Plt Count (150-400) K/uL Neut % (Auto) (36-66) % Lymph % (Auto) (24-44) % [place] % (Auto) (2-6) % Eos % (Auto) (2-4) % Baso % (Auto) (0-1) % Sodium (140-148) mmol/L Potassium (3.6-5.2) mmol/L Chloride (100-108) mmol/L Carbon Dioxide (21-32) mmol/L Anion Gap (5.0-14.0) mmol/L BUN (7-18) mg/dL Creatinine (0.6-1.0) mg/dL Est Cr Clr Drug Dosing mL/min Estimated GFR (MDRD) (>60) Glucose (74-106) mg/dL POC Glucose 169 H 191 H (74-106) mg/dL Calcium (8.5-10.1) mg/dL Result Diagrams: 07/04/20 05:58 07/04/20 05:58 Sepsis Event Note - Evaluation Sepsis Screening Result: No Definite Risk - Focused Exam Vital Signs: Vital Signs Temp Pulse Resp BP BP Pulse Ox 07/04/20 15:02 95.7 F L 64 20 122/65 94 L 07/04/20 12:34 94 L 07/04/20 10:51 96.6 F L 84 20 104/62 96 07/04/20 07:27 96.8 F L 87 18 116/70 93 L 07/04/20 07:17 97 - Problem List Review Problem List Initiated/Reviewed/Updated: Yes - My Orders Last 24 Hours: My Active Orders 07/04/20 16:30 GLUCOSE POC LAB TO COLLECT JPM [POC] QIDACANDBED 07/04/20 21:00 GLUCOSE POC LAB TO COLLECT JPM [POC] QIDACANDBED 07/05/20 05:00 CBC WITH AUTO DIFF [HEME] Timed 07/05/20 07:30 GLUCOSE POC LAB TO COLLECT JPM [POC] QIDACANDBED 07/05/20 11:30 GLUCOSE POC LAB TO COLLECT JPM [POC] QIDACANDBED 07/05/20 16:30 GLUCOSE POC LAB TO COLLECT JPM [POC] QIDACANDBED 07/05/20 21:00 GLUCOSE POC LAB TO COLLECT JPM [POC] QIDACANDBED 07/06/20 07:30 GLUCOSE POC LAB TO COLLECT JPM [POC] QIDACANDBED 07/06/20 11:30 GLUCOSE POC LAB TO COLLECT JPM [POC] QIDACANDBED 07/06/20 16:30 GLUCOSE POC LAB TO COLLECT JPM [POC] QIDACANDBED 07/06/20 21:00 GLUCOSE POC LAB TO COLLECT JPM [POC] QIDACANDBED - Plan Plan:: ASSESSMENT AND PLAN Asthma exacerbation with pneumonia-further improvement with less shortness of breath and cough -Saline lock IV -IV Antibiotic-levofloxacin and Zosyn -oxygen to keep sats greater than 95% -IV Solumedrol 40 mg every 8 hours -schedule Duo nebs every 6 hours, Albuterol nebs every 4 hours prn Hypomagnesium -resolved Diabetes type 2- in obesity -sliding scale medium dose -bedside blood glucose before meals and at bedtime Maintenance issues -Nutrition: consistent charb diet -Ramos catheter -not indicated at this time -DVT Lovenox 30 mg subcut -PPI - IV Protonix 40mg daily Tobacco dependence - declincs nicotine patches and nicotine gum CODE STATUS: FULL Admission status: Admit to [address] [place] [address] Admission justification. This patient will be admitted for inpatient services and is medically appropriate meeting medical necessity for inpatient admission as outlined in my documentation. I reasonably expect the patient will require inpatient services that span. Time over 2 midnights. I reasonably expect this patient to be discharged or transferred within 96 hours after admission to the [facility]. Disposition: home with Family Primary care provider: Dr. Brent Palacios, [facility] Hospitalist: Dr. Hayden
[2020-07-05] MEDS: methylPREDNISolone Sodium Succinate 40 MG/1 ML SDV IVPUSH SCH ×3 (02:16→21:11)
[2020-07-05] MEDS: Piperacillin/Tazobactam/Dext 3.375 GM in Premix Bag 1 BAG IV SCH ×2 (02:16→10:35)
[2020-07-05] MEDS: Albuterol 0.083% 2.5 MG/3 ML Neb Soln NEB PRN ×2 (03:00→19:14)
[2020-07-05] MEDS: Albuterol/Ipratropium 3.0-0.5 MG/3 ML Neb Soln NEB SCH ×4 (07:19→21:10)
[2020-07-05] MEDS: Formoterol/Mometasone 100-5 MCG 8.8 GM Inhaler IH SCH ×3 (07:19→21:18)
[2020-07-05] MEDS: Insulin Lispro 100 Unit/ML 3 ML KwikPen SUBCUT SCH ×4 (09:15→21:07)
[2020-07-05] MEDS: Pantoprazole 40 MG Tab.CR PO SCH (09:18)
[2020-07-05] MEDS: Lactobacillus Rhamnosus GG (Probiotic) Cap PO SCH ×2 (09:19→21:10)
[2020-07-05] MEDS: Enoxaparin 40 MG/0.4 ML Syringe SUBCUT SCH (09:19)
[2020-07-05] MEDS: Montelukast 10 MG Tab PO SCH (09:20)
--- NOTE | 2020-07-05 11:22 | PCM.PN ---
- General Info Date of Service: 07/05/20 Subjective Update: Ms. Galarza has continued to improve with less shortness of breath and cough. She does continue to require supplemental oxygen and does desaturate with activity. Subjectively shortness of breath and cough seem to be improved. Appetite and overall energy level also improved over the last 24 hours. Functional Status: Reports: Tolerating Diet, Ambulating, Urinating - Review of Systems General: Reports: Weakness, Fatigue. Denies: Fever, Chills Pulmonary: Reports: Shortness of Breath, Cough, Sputum, Wheezing. Denies: Pleuritic Chest Pain, Hemoptysis Cardiovascular: Reports: Dyspnea on Exertion. Denies: Chest Pain, Palpitations, Orthopnea, PND, Edema, Lightheadedness Gastrointestinal: Reports: No Symptoms Genitourinary: Reports: No Symptoms - Patient Data Vitals - Most Recent: Last Vital Signs Temp 95.9 F L 07/05/20 02:28 Pulse 78 07/05/20 11:08 Resp 16 07/05/20 08:32 BP 120/69 07/05/20 08:32 Pulse Ox 93 L 07/05/20 08:32 Weight - Most Recent: 198 lb 6.656 oz I&O - Last 24 Hours: Intake & Output 07/04/20 07/05/20 07/05/20 22:59 06:59 14:59 Intake Total 1800 Balance 1800 Lab Results Last 24 Hours: Laboratory Results - last 24 hr 07/04/20 07/04/20 07/04/20 Range/Units 11:47 16:51 21:10 WBC (4.5-11.0) K/uL RBC (3.30-5.50) M/uL Hgb (12.0-15.0) g/dL Hct (36.0-48.0) % MCV (80-98) fL MCH (27-31) pg MCHC (32-36) % Plt Count (150-400) K/uL Neut % (Auto) (36-66) % Lymph % (Auto) (24-44) % [place] % (Auto) (2-6) % Eos % (Auto) (2-4) % Baso % (Auto) (0-1) % POC Glucose 191 H 152 H 196 H (74-106) mg/dL 07/05/20 07/05/20 Range/Units 05:42 07:22 WBC 11.2 H (4.5-11.0) K/uL RBC 4.39 (3.30-5.50) M/uL Hgb 11.8 L (12.0-15.0) g/dL Hct 38.6 (36.0-48.0) % MCV 88 (80-98) fL MCH 27 (27-31) pg MCHC 31 L (32-36) % Plt Count 486 H (150-400) K/uL Neut % (Auto) 90 H (36-66) % Lymph % (Auto) 7 L (24-44) % [place] % (Auto) 4 (2-6) % Eos % (Auto) 0 L (2-4) % Baso % (Auto) 0 (0-1) % POC Glucose 179 H (74-106) mg/dL Med Orders - Current: Current Medications Acetaminophen (Acetaminophen 325 Mg Tab) 650 mg PO Q4H PRN PRN Reason: Pain (Mild 1-3)/fever Hydrocodone Bitart/Acetaminophen (Acetaminophen/Hydrocodone 325-5 Mg Tab) 1 tab PO Q4H PRN PRN Reason: Pain (moderate 4-6) Albuterol (Albuterol 0.083% 2.5 Mg/3 Ml Neb Soln) 2.5 mg NEB Q4H PRN PRN Reason: Shortness Of Breath/wheezing Last Admin: 07/05/20 03:00 Dose: 2.5 mg Documented by: Albuterol/Ipratropium (Albuterol/Ipratropium 3.0-0.5 Mg/3 Ml Neb Soln) 3 ml NEB QIDRT [facility] Last Admin: 07/05/20 11:07 Dose: 3 ml Documented by: Bisacodyl (Bisacodyl 5 Mg Tab) 5 mg PO DAILY PRN PRN Reason: Constipation Docusate Sodium (Docusate Sodium 100 Mg Cap) 100 mg PO BID PRN PRN Reason: Constipation Enoxaparin Sodium (Enoxaparin 40 Mg/0.4 Ml Syringe) 40 mg SUBCUT DAILY [facility] Last Admin: 07/05/20 09:19 Dose: 40 mg Documented by: Levofloxacin/Dextrose 750 mg/ (Premix) 150 mls @ 100 mls/hr IV Q24H [facility] Last Admin: 07/04/20 09:45 Dose: 100 mls/hr Documented by: Ibuprofen (Ibuprofen 800 Mg Tab) 800 mg PO Q6H PRN PRN Reason: Pain (mild 1-3) Insulin Human Lispro (Insulin Lispro 100 Unit/Ml 3 Ml Kwikpen) 0 unit SUBCUT QIDACANDBED [facility]; Protocol Last Admin: 07/05/20 09:15 Dose: 1 unit Documented by: Lactobacillus Rhamnosus (Lactobacillus Rhamnosus Gg (Probiotic) Cap) 1 cap PO BID [facility] Last Admin: 07/05/20 09:19 Dose: 1 cap Documented by: Lorazepam (Lorazepam 2 Mg/Ml Sdv) 0.5 mg IV Q4H PRN PRN Reason: Agitation Methylprednisolone Sodium Succinate (Methylprednisolone Sodium Succinate 40 Mg/1 Ml Sdv) 40 mg IVPUSH Q12H [facility] Mometasone Furoate/Formoterol Fumar (Formoterol/Mometasone 100-5 Mcg 8.8 Gm Inhaler) 2 puff IH BIDRT [facility] Last Admin: 07/05/20 07:19 Dose: 2 puff Documented by: Montelukast Sodium (Montelukast 10 Mg Tab) 10 mg PO DAILY [facility] Last Admin: 07/05/20 09:20 Dose: 10 mg Documented by: Morphine Sulfate (Morphine 2 Mg/Ml Syringe) 2 mg IVPUSH Q2H PRN PRN Reason: Pain (severe 7-10) Ondansetron HCl (Ondansetron 4 Mg Tab.Dis) 4 mg PO Q6H PRN PRN Reason: Nausea able to take PO Ondansetron HCl (Ondansetron 4 Mg/2 Ml Sdv) 4 mg IV Q4H PRN PRN Reason: Nausea/Vomiting Pantoprazole Sodium (Pantoprazole 40 Mg Tab.Cr) 40 mg PO ACBREAKFAST [facility] Last Admin: 07/05/20 09:18 Dose: 40 mg Documented by: Sodium Chloride (Sodium Chloride 0.9% 10 Ml Syringe) 10 ml FLUSH ASDIRECTED PRN PRN Reason: Keep Vein Open Last Admin: 07/02/20 02:22 Dose: 10 ml Documented by: Discontinued Medications Albuterol/Ipratropium (Albuterol/Ipratropium 3.0-0.5 Mg/3 Ml Neb Soln) 3 ml NEB .CONTINUOUS ONE Stop: 07/02/20 01:52 Last Admin: 07/02/20 02:21 Dose: 3 ml Documented by: Albuterol/Ipratropium (Albuterol/Ipratropium 3.0-0.5 Mg/3 Ml Neb Soln) 3 ml NEB QID [facility] Last Admin: 07/02/20 05:48 Dose: 3 ml Documented by: Magnesium Sulfate (Magnesium Sulfate In Water 2 Gm/50 Ml) 2 gm in 50 mls @ 25 mls/hr IV ONETIME ONE Stop: 07/02/20 04:44 Last Admin: 07/02/20 04:42 Dose: 25 mls/hr Documented by: Doxycycline Hyclate 100 mg/ (Sodium Chloride) 100 mls @ 100 mls/hr IV ONETIME ONE Stop: 07/02/20 03:54 Last Admin: 07/02/20 03:38 Dose: 100 mls/hr Documented by: Doxycycline Hyclate 100 mg/ (Sodium Chloride) 100 mls @ 100 mls/hr IV Q12H [facility] Sodium Chloride (Normal Saline) 1,000 mls @ 125 mls/hr IV ASDIRECTED [facility] Last Admin: 07/02/20 05:49 Dose: 125 mls/hr Documented by: Piperacillin/Tazobactam/ (Dextrose 3.375 gm/ Premix) 50 mls @ 100 mls/hr IV Q6H [facility] Last Admin: 07/05/20 10:35 Dose: 100 mls/hr Documented by: Sodium Chloride (Normal Saline) 75 mls @ 3 mls/sec IV ASDIRECTED [facility] Stop: 07/02/20 11:46 Last Admin: 07/02/20 12:22 Dose: 3 mls/sec Documented by: Iopamidol (Iopamidol 612 Mg/Ml 100 Ml Bottle) 100 ml IV . DIRECTED [facility] Stop: 07/02/20 11:46 Last Admin: 07/02/20 12:23 Dose: 100 ml Documented by: Lorazepam (Lorazepam 2 Mg/Ml Sdv) 1 mg IV Q6H PRN PRN Reason: Agitation Methylprednisolone Sodium Succinate (Methylprednisolone Sodium Succinate 125 Mg/2 Ml Sdv) 125 mg IV ONETIME ONE Stop: 07/02/20 01:52 Last Admin: 07/02/20 02:21 Dose: 125 mg Documented by: Methylprednisolone Sodium Succinate (Methylprednisolone Sodium Succinate 40 Mg/1 Ml Sdv) 40 mg IVPUSH Q6H [facility] Last Admin: 07/05/20 09:21 Dose: 40 mg Documented by: Pantoprazole Sodium (Pantoprazole 40 Mg Vial) 40 mg IV DAILY [facility] Last Admin: 07/02/20 09:51 Dose: 40 mg Documented by: Sodium Chloride (Sodium Chloride 0.9% 10 Ml Syringe) 10 ml FLUSH ONETIME ONE Stop: 07/02/20 11:43 Last Admin: 07/02/20 12:23 Dose: 10 ml Documented by: - Exam Quality Assessment: Supplemental Oxygen, DVT Prophylaxis General: Alert, Oriented, Cooperative, Mild Distress Lungs: Decreased Breath Sounds, Rhonchi, Wheezing. No: Crackles, Rales Cardiovascular: Regular Rate, Regular Rhythm, No Murmurs GI/Abdominal Exam: Soft, Non-Tender, No Organomegaly, No Distention Extremities: Non-Tender, No Pedal Edema - Patient Data Lab Results Last 24 hrs: Laboratory Results - last 24 hr 07/04/20 07/04/20 07/04/20 Range/Units 11:47 16:51 21:10 WBC (4.5-11.0) K/uL RBC (3.30-5.50) M/uL Hgb (12.0-15.0) g/dL Hct (36.0-48.0) % MCV (80-98) fL MCH (27-31) pg MCHC (32-36) % Plt Count (150-400) K/uL Neut % (Auto) (36-66) % Lymph % (Auto) (24-44) % [place] % (Auto) (2-6) % Eos % (Auto) (2-4) % Baso % (Auto) (0-1) % POC Glucose 191 H 152 H 196 H (74-106) mg/dL 07/05/20 07/05/20 Range/Units 05:42 07:22 WBC 11.2 H (4.5-11.0) K/uL RBC 4.39 (3.30-5.50) M/uL Hgb 11.8 L (12.0-15.0) g/dL Hct 38.6 (36.0-48.0) % MCV 88 (80-98) fL MCH 27 (27-31) pg MCHC 31 L (32-36) % Plt Count 486 H (150-400) K/uL Neut % (Auto) 90 H (36-66) % Lymph % (Auto) 7 L (24-44) % [place] % (Auto) 4 (2-6) % Eos % (Auto) 0 L (2-4) % Baso % (Auto) 0 (0-1) % POC Glucose 179 H (74-106) mg/dL Result Diagrams: 07/05/20 05:42 07/04/20 05:58 Sepsis Event Note - Evaluation Sepsis Screening Result: No Definite Risk - Focused Exam Vital Signs: Vital Signs Temp Pulse Resp BP Pulse Ox 07/05/20 11:08 78 07/05/20 08:32 71 16 120/69 93 L 07/05/20 07:20 76 07/05/20 07:16 94 L 07/05/20 02:28 95.9 F L 73 16 113/72 92 L 07/05/20 01:50 92 L - Problem List Review Problem List Initiated/Reviewed/Updated: Yes - My Orders Last 24 Hours: My Active Orders 07/05/20 11:30 GLUCOSE POC LAB TO COLLECT JPM [POC] QIDACANDBED methylPREDNISolone Sod Succ [Solu-MEDROL] 40 mg IVPUSH Q12H 07/05/20 16:30 GLUCOSE POC LAB TO COLLECT JPM [POC] QIDACANDBED 07/05/20 21:00 GLUCOSE POC LAB TO COLLECT JPM [POC] QIDACANDBED 07/06/20 07:30 GLUCOSE POC LAB TO COLLECT JPM [POC] QIDACANDBED 07/06/20 11:30 GLUCOSE POC LAB TO COLLECT JPM [POC] QIDACANDBED 07/06/20 16:30 GLUCOSE POC LAB TO COLLECT JPM [POC] QIDACANDBED 07/06/20 21:00 GLUCOSE POC LAB TO COLLECT JPM [POC] QIDACANDBED - Plan Plan:: ASSESSMENT AND PLAN Asthma exacerbation with pneumonia-further improvement with less shortness of breath and cough, continues to require supplemental oxygen via nasal cannula -Saline lock IV -IV Antibiotic-levofloxacin -oxygen to keep sats greater than 95% -IV Solumedrol 40 mg every 12 hours -schedule Duo nebs every 6 hours, Albuterol nebs every 4 hours prn Hypomagnesium -resolved Diabetes type 2- in obesity -sliding scale medium dose -bedside blood glucose before meals and at bedtime Maintenance issues -Nutrition: consistent charb diet -Ramos catheter -not indicated at this time -DVT Lovenox 30 mg subcut -PPI - IV Protonix 40mg daily Tobacco dependence - declincs nicotine patches and nicotine gum CODE STATUS: FULL Admission status: Admit to [address] [place] [id number] justification. This patient will be admitted for inpatient services and is medically appropriate meeting medical necessity for inpatient admission as outlined in my documentation. I reasonably expect the patient will require inpatient services that span. Time over 2 midnights. I reasonably expect this patient to be discharged or transferred within 96 hours after admission to the critical access hospital. Disposition: home with Family Primary care provider: Dr. Brent Palacios, [facility] Hospitalist: Dr. Hayden
[2020-07-05] MEDS: Levofloxacin/Dextrose 5%-Water 750 MG in Premix Bag 1 BAG IV SCH (11:44)
[2020-07-06] MEDS ORDERED: Calcium Carbonate 500 MG Tab.Chew PO PRN (05:50)
[2020-07-06] MEDS: Albuterol/Ipratropium 3.0-0.5 MG/3 ML Neb Soln NEB SCH ×2 (07:18→11:05)
[2020-07-06] MEDS: Formoterol/Mometasone 100-5 MCG 8.8 GM Inhaler IH SCH (07:18)
[2020-07-06] MEDS: Pantoprazole 40 MG Tab.CR PO SCH (08:13)
[2020-07-06] MEDS: Insulin Lispro 100 Unit/ML 3 ML KwikPen SUBCUT SCH ×2 (08:15→13:00)
[2020-07-06] MEDS: Enoxaparin 40 MG/0.4 ML Syringe SUBCUT SCH (08:50)
[2020-07-06] MEDS: methylPREDNISolone Sodium Succinate 40 MG/1 ML SDV IVPUSH SCH (08:50)
[2020-07-06] MEDS: Lactobacillus Rhamnosus GG (Probiotic) Cap PO SCH (08:50)
[2020-07-06] MEDS: Montelukast 10 MG Tab PO SCH (08:50)
[2020-07-06] MEDS: Levofloxacin/Dextrose 5%-Water 750 MG in Premix Bag 1 BAG IV SCH (10:11)
--- NOTE | 2020-07-06 11:11 | PCM.DCSUM1 ---
Discharge Summary - Hospital Course Brief History: Ms. Galarza is a 39-year-old woman who was admitted through the emergency department with cough, shortness of breath, hypoxia, secondary to asthma exacerbation and underlying bilateral pneumonia. - Discharge Data Discharge Date: 07/06/20 Discharge Disposition: Home, Self-Care 01 Condition: Fair - Referral to Home Health Primary Care Physician: PCP None - Discharge Diagnosis/Problem(s) (1) Bilateral pneumonia SNOMED Code(s): 861192869 ICD Code: J18.9 - PNEUMONIA, UNSPECIFIED ORGANISM Status: Acute Current Visit: Yes (2) Acute asthma exacerbation SNOMED Code(s): 433806309 ICD Code: J45.901 - UNSPECIFIED ASTHMA WITH (ACUTE) EXACERBATION Status: Acute Priority: High Current Visit: Yes Qualifiers: Asthma severity: severe (3) Hypoxia SNOMED Code(s): 419149628 ICD Code: R09.02 - HYPOXEMIA Status: Acute Current Visit: Yes - Patient Summary/Data Hospital Course: Ms. Galarza presented emergency room secondary to concerns about increasing shortness of breath difficulty breathing she states that she has been admitted 2 times over the last couple of months to [facility] in [place] that admission was in May and she was discharged on the is related to her acute asthma exacerbation and pneumonia she was sent home last admission on a prednisone taper as well as Levaquin she did have follow-up after discharge approximately 2 weeks ago she states that that time she did have some wheezing but otherwise seem to be improving after that things have slowly gotten worse again she does do home nebulizers in the last 2 to 3 days she states that she has been using them fairly regularly stating that she is using them almost hour ly they also have a home park pulse ox monitor and it was reported tonight to be 50% she could not walk because of shortness of breath and difficulty breathing so they came to the ER for further evaluation been tested several times over the last couple months for Covid and has been negative per their report she denies any positive Covid testing denies any fevers chills chest pain discomfort primar y complaint is weakness and difficulty breathing. On assessment in the emergency department she was found to be hypoxic. White blood cell count was found to be elevated and CT scan of the chest did show evidence of bilateral pulmonary infiltrates consistent with infection. Blood cultures were obtained in the emergency department and she was started on broad-spectrum IV antibiotic therapy with Zosyn and levofloxacin because of her history of recent antibiotic therapy. She was given IV fluids for hydration initially and also started on IV Solu-Medrol 40 mg every 8 hours. Supplemental oxygen was used to maintain oxygen saturations of greater than 90%. Over the next few days of hospitalization she showed gradual improvement. By the time of discharge though was still requiring supplemental oxygen at 2 to 3 L/min via nasal cannula. She was qualified for home oxygen with an oxygen saturation of 87% at rest on room air prior to discharge. She will be discharged to home with supplemental home oxygen is noted as well as an additional 6 days of oral levofloxacin and an additional 3 days of oral prednisone. Follow-up appointment will be scheduled with her primary care provider within 1 week. Pulmonology consult should be arranged for further evaluation of recurrent asthma exacerbations and bilateral pulmonary infiltrates. I have recommended that if she returns to the emergency department with similar symptoms and findings prior to seeing pulmonology that she should be transferred to tertiary care center so that she can receive subspecialty evaluation by pulmonary medicine and infectious disease. Activity will be as tolerated and she will resume her usual diet. - Patient Instructions Diet: Usual Diet as Tolerated Activity: As Tolerated Other/Special Instructions: Please schedule follow-up appointment with Phil Graham provider within 1 week. Please schedule pulmonology consult for evaluation of recurrent asthma exacerbations and bilateral pulmonary infiltrates. - Discharge Plan *PRESCRIPTION DRUG MONITORING PROGRAM REVIEWED*: Not Applicable *COPY OF PRESCRIPTION DRUG MONITORING REPORT IN PATIENT MATT: Not Applicable Prescriptions/Med Rec: Levofloxacin 750 mg PO DAILY #6 tablet predniSONE [Prednisone] 20 mg PO DAILY #6 tablet Home Medications: Home Meds Albuterol [Ventolin HFA] 1 - 2 inh INH ASDIRECTED PRN 07/02/20 [History] Albuterol/Ipratropium [DuoNeb 3.0-0.5 MG/3 ML] 3 ml INH ASDIRECTED PRN 07/02/20 [History] Formoterol/Mometasone [Dulera 100 MCG/5 MCG] 2 inh INH BID 07/02/20 [History] Insulin Aspart [NovoLOG] 2 units SUBCUT ASDIRECTED 07/02/20 [History] Montelukast [Singulair] 10 mg PO DAILY 07/02/20 [History] Levofloxacin 750 mg PO DAILY #6 tablet 07/06/20 [Rx] predniSONE [Prednisone] 20 mg PO DAILY #6 tablet 07/06/20 [Rx] Oxygen Flow Rate (L/min): 2 Maintain SpO2% greater than: 90 Patient Handouts: Asthma, Adult, [id number], Community-Acquired Pneumonia, Adult, [id number] - Discharge Summary/Plan Comment DC Time >30 min.: No - Patient Data Vitals - Most Recent: Last Vital Signs Temp 96.9 F 07/06/20 07:00 Pulse 80 07/06/20 07:31 Resp 18 07/06/20 07:00 BP 116/70 07/06/20 07:00 Pulse Ox 96 07/06/20 07:16 Weight - Most Recent: 198 lb 6.656 oz I&O - Last 24 hours: Intake & Output 07/05/20 07/06/20 07/06/20 22:59 06:59 14:59 Intake Total 240 320 Balance 240 320 Lab Results - Last 24 hrs: Laboratory Results - last 24 hr 07/05/20 07/05/20 07/05/20 Range/Units 11:27 16:25 20:55 POC Glucose 160 H 125 H 139 H (74-106) mg/dL 07/06/20 Range/Units 07:30 POC Glucose 107 H (74-106) mg/dL Med Orders - Current: Current Medications Acetaminophen (Acetaminophen 325 Mg Tab) 650 mg PO Q4H PRN PRN Reason: Pain (Mild 1-3)/fever Hydrocodone Bitart/Acetaminophen (Acetaminophen/Hydrocodone 325-5 Mg Tab) 1 tab PO Q4H PRN PRN Reason: Pain (moderate 4-6) Albuterol (Albuterol 0.083% 2.5 Mg/3 Ml Neb Soln) 2.5 mg NEB Q4H PRN PRN Reason: Shortness Of Breath/wheezing Last Admin: 07/05/20 19:14 Dose: 2.5 mg Documented by: Albuterol/Ipratropium (Albuterol/Ipratropium 3.0-0.5 Mg/3 Ml Neb Soln) 3 ml NEB QIDRT ALEX Last Admin: 07/06/20 07:18 Dose: 3 ml Documented by: Bisacodyl (Bisacodyl 5 Mg Tab) 5 mg PO DAILY PRN PRN Reason: Constipation Calcium Carbonate/Glycine (Calcium Carbonate 500 Mg Tab.Chew) 500 mg PO Q2H PRN PRN Reason: Indigestion Last Admin: 07/06/20 06:20 Dose: 500 mg Documented by: Clotrimazole (Clotrimazole 10 Mg David) 10 mg PO 5XDAY [facility] Docusate Sodium (Docusate Sodium 100 Mg Cap) 100 mg PO BID PRN PRN Reason: Constipation Enoxaparin Sodium (Enoxaparin 40 Mg/0.4 Ml Syringe) 40 mg SUBCUT DAILY [facility] Last Admin: 07/06/20 08:50 Dose: 40 mg Documented by: Levofloxacin/Dextrose 750 mg/ (Premix) 150 mls @ 100 mls/hr IV Q24H [facility] Last Admin: 07/06/20 10:11 Dose: 100 mls/hr Documented by: Ibuprofen (Ibuprofen 800 Mg Tab) 800 mg PO Q6H PRN PRN Reason: Pain (mild 1-3) Insulin Human Lispro (Insulin Lispro 100 Unit/Ml 3 Ml Kwikpen) 0 unit SUBCUT QIDACANDBED [facility]; Protocol Last Admin: 07/06/20 08:15 Dose: Not Given Documented by: Lactobacillus Rhamnosus (Lactobacillus Rhamnosus Gg (Probiotic) Cap) 1 cap PO BID [facility] Last Admin: 07/06/20 08:50 Dose: 1 cap Documented by: Lorazepam (Lorazepam 2 Mg/Ml Sdv) 0.5 mg IV Q4H PRN PRN Reason: Agitation Methylprednisolone Sodium Succinate (Methylprednisolone Sodium Succinate 40 Mg/1 Ml Sdv) 40 mg IVPUSH Q12H [facility] Last Admin: 07/06/20 08:50 Dose: 40 mg Documented by: Mometasone Furoate/Formoterol Fumar (Formoterol/Mometasone 100-5 Mcg 8.8 Gm Inhaler) 2 puff IH BIDRT [facility] Last Admin: 07/06/20 07:18 Dose: 2 puff Documented by: Montelukast Sodium (Montelukast 10 Mg Tab) 10 mg PO DAILY [facility] Last Admin: 07/06/20 08:50 Dose: 10 mg Documented by: Morphine Sulfate (Morphine 2 Mg/Ml Syringe) 2 mg IVPUSH Q2H PRN PRN Reason: Pain (severe 7-10) Ondansetron HCl (Ondansetron 4 Mg Tab.Dis) 4 mg PO Q6H PRN PRN Reason: Nausea able to take PO Ondansetron HCl (Ondansetron 4 Mg/2 Ml Sdv) 4 mg IV Q4H PRN PRN Reason: Nausea/Vomiting Pantoprazole Sodium (Pantoprazole 40 Mg Tab.Cr) 40 mg PO ACBREAKFAST [facility] Last Admin: 07/06/20 08:13 Dose: 40 mg Documented by: Sodium Chloride (Sodium Chloride 0.9% 10 Ml Syringe) 10 ml FLUSH ASDIRECTED PRN PRN Reason: Keep Vein Open Last Admin: 07/02/20 02:22 Dose: 10 ml Documented by: Discontinued Medications Albuterol/Ipratropium (Albuterol/Ipratropium 3.0-0.5 Mg/3 Ml Neb Soln) 3 ml NEB .CONTINUOUS ONE Stop: 07/02/20 01:52 Last Admin: 07/02/20 02:21 Dose: 3 ml Documented by: Albuterol/Ipratropium (Albuterol/Ipratropium 3.0-0.5 Mg/3 Ml Neb Soln) 3 ml NEB QID [facility] Last Admin: 07/02/20 05:48 Dose: 3 ml Documented by: Magnesium Sulfate (Magnesium Sulfate In Water 2 Gm/50 Ml) 2 gm in 50 mls @ 25 mls/hr IV ONETIME ONE Stop: 07/02/20 04:44 Last Admin: 07/02/20 04:42 Dose: 25 mls/hr Documented by: Doxycycline Hyclate 100 mg/ (Sodium Chloride) 100 mls @ 100 mls/hr IV ONETIME ONE Stop: 07/02/20 03:54 Last Admin: 07/02/20 03:38 Dose: 100 mls/hr Documented by: Doxycycline Hyclate 100 mg/ (Sodium Chloride) 100 mls @ 100 mls/hr IV Q12H [facility] Sodium Chloride (Normal Saline) 1,000 mls @ 125 mls/hr IV ASDIRECTED [facility] Last Admin: 07/02/20 05:49 Dose: 125 mls/hr Documented by: Piperacillin/Tazobactam/ (Dextrose 3.375 gm/ Premix) 50 mls @ 100 mls/hr IV Q6H [facility] Last Admin: 07/05/20 10:35 Dose: 100 mls/hr Documented by: Sodium Chloride (Normal Saline) 75 mls @ 3 mls/sec IV ASDIRECTED [facility] Stop: 07/02/20 11:46 Last Admin: 07/02/20 12:22 Dose: 3 mls/sec Documented by: Iopamidol (Iopamidol 612 Mg/Ml 100 Ml Bottle) 100 ml IV . DIRECTED [facility] Stop: 07/02/20 11:46 Last Admin: 07/02/20 12:23 Dose: 100 ml Documented by: Lorazepam (Lorazepam 2 Mg/Ml Sdv) 1 mg IV Q6H PRN PRN Reason: Agitation Methylprednisolone Sodium Succinate (Methylprednisolone Sodium Succinate 125 Mg/2 Ml Sdv) 125 mg IV ONETIME ONE Stop: 07/02/20 01:52 Last Admin: 07/02/20 02:21 Dose: 125 mg Documented by: Methylprednisolone Sodium Succinate (Methylprednisolone Sodium Succinate 40 Mg/1 Ml Sdv) 40 mg IVPUSH Q6H [facility] Last Admin: 07/05/20 09:21 Dose: 40 mg Documented by: Pantoprazole Sodium (Pantoprazole 40 Mg Vial) 40 mg IV DAILY [facility] Last Admin: 07/02/20 09:51 Dose: 40 mg Documented by: Sodium Chloride (Sodium Chloride 0.9% 10 Ml Syringe) 10 ml FLUSH ONETIME ONE Stop: 07/02/20 11:43 Last Admin: 07/02/20 12:23 Dose: 10 ml Documented by: - Exam Quality Assessment: Reports: Supplemental Oxygen, DVT Prophylaxis General: Reports: Alert, Oriented, Cooperative, Mild Distress Lungs: Reports: Normal Respiratory Effort, Decreased Breath Sounds, Wheezing. Denies: Crackles, Rales, Rhonchi Cardiovascular: Reports: Regular Rate, Regular Rhythm, No Murmurs GI/Abdominal Exam: Soft, Non-Tender, No Organomegaly, No Distention Extremities: Non-Tender, No Pedal Edema
[2020-07-06] MEDS ORDERED: Clotrimazole 10 MG Troche PO SCH (14:00)
== END 2020-07-06 13:52 | disposition home or self-care (01) | DRG 202 ==
LOC: JP.ED 01:02 → JP.2SS 04:33
PROVIDERS: ADMIT Hospitalist; ATTEND Hospitalist
DX: J45.901 Unspecified asthma with (acute) exacerbation (principal); J18.9 Pneumonia, unspecified organism; Z20.822 Contact with and (suspected) exposure to COVID-19; E11.9 Type 2 diabetes mellitus without complications; F17.210 Nicotine dependence, cigarettes, uncomplicated; H54.7 Unspecified visual loss; E83.42 Hypomagnesemia; E66.9 Obesity, unspecified; Z79.52 Long term (current) use of systemic steroids; Z79.4 Long term (current) use of insulin; Z79.899 Other long term (current) drug therapy; Z88.5 Allergy status to narcotic agent; Z88.1 Allergy status to other antibiotic agents; Z90.49 Acquired absence of other specified parts of digestive tract; Z68.30 Body mass index [BMI] 30.0-30.9, adult
CPT/HCPCS: 0241U; 36415; 71045; 71045-26; 71260; 71260-26; 80048; 80053; 82947; 82962; 83735; 85025; 94640; 94762; 96365; 96375; 99222; 99232; 99238; 99285-25; A9270-GY; C9113; J1650; J1815; J1956; J2543; J2920; J2930; J3475; J3490; J7030; J7620-GY; Q9967

== ENCOUNTER 2020-07-29 05:46 | Emergency (ER) | payer MEDICAID ==
--- NOTE | 2020-07-29 06:19 | EDM.PDOC ---
<Wyatt Thorne - Last Filed: 07/29/20 12:30> ED HPI GENERAL MEDICAL PROBLEM - General Chief Complaint: Back Pain or Injury Stated Complaint: LOWER BACK AND KIDNEY PAIN Time Seen by Provider: 07/29/20 06:15 - Related Data Allergies Allergy/AdvReac Type Severity Reaction Status Date / Time cefprozil Allergy Airway Verified 07/29/20 22:44 Tightness tramadol Allergy Hives Verified 07/29/20 22:44 Home Meds: Home Meds Albuterol [Ventolin HFA] 1 - 2 inh INH ASDIRECTED PRN 07/02/20 [History] Albuterol/Ipratropium [DuoNeb 3.0-0.5 MG/3 ML] 3 ml INH ASDIRECTED PRN 07/02/20 [History] Formoterol/Mometasone [Dulera 100 MCG/5 MCG] 2 puff INH BID 07/02/20 [History] Insulin Aspart [NovoLOG] 0 - 4 units SUBCUT ASDIRECTED 07/02/20 [History] Montelukast [Singulair] 10 mg PO DAILY 07/02/20 [History] Clotrimazole [Mycelex] 10 mg PO 5XDAY #35 josemanuel 07/06/20 [Rx] Doxycycline [Doxycycline Hyclate] 100 mg PO BID 07/29/20 [History] ED EXAM,LOWER BACK PAIN/INJURY - Physical Exam Exam: See Below Course - Re-Assessments/Exams Free Text/Narrative Re-Assessment/Exam: 07/29/20 07:48 Care turned over from Dr. Herzog pending labs. They are very reassuring. Impression was possible tickborne illness, she will be placed on doxycycline 100 mg twice daily pending labs. She can return anytime if worsening or concerns. Departure - Departure Time of Disposition: 08:15 Disposition: Home, Self-Care 01 Clinical Impression: Chills (without fever) Back pain Qualifiers: Back pain location: back pain in unspecified location Chronicity: acute Back pain laterality: bilateral Qualified Code(s): M54.9 - Dorsalgia, unspecified - Discharge Information Instructions: Tick Bite Information, Adult, [id number] Referrals: PCP,None [Primary Care Provider] - Forms: ED Department Discharge Care Plan Goals: You are being placed on antibiotic that covers infections including tickborne disease in case you have been bitten by a tick. Results will be available in several days, you will be contacted. Return anytime if worsening despite treatment. <Michelle Herzog - Last Filed: 08/04/20 07:32> ED HPI GENERAL MEDICAL PROBLEM - General Source of Information: Reports: Patient History Limitations: Reports: No Limitations - History of Present Illness INITIAL COMMENTS - FREE TEXT/NARRATIVE: pt has shaking chills and back pain. She hurts all over. She has a known history of kidney diease and infections. She did have to be dialuzed in the past. She did have a small tick stuck to her about 1 week ago. Duration: Hour(s):, Other ( chills started this pm. 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 Neurological History: Reports: Concussion Endocrine/Metabolic History: Reports: Diabetes, Type II, Obesity/BMI 30+ - Infectious Disease History Infectious Disease History: Reports: Chicken Pox - Past Surgical History GI Surgical History: Reports: Cholecystectomy Social & Family History - Tobacco Use Tobacco Use Status *Q: Current Every Day Tobacco User Years of Tobacco use: 24 Packs/Tins Daily: 0.3 - Caffeine Use Caffeine Use: Reports: Soda - Recreational Drug Use Recreational Drug Use: No - Living Situation & Occupation Living situation: Reports: Occupation: Unemployed ( to her , lives in [place]. was in [facility] for 10 months, now at home with home monitoring. She did notify [facility] about her current admission.) ED ROS GENERAL - Review of Systems Review Of Systems: See Below Constitutional: Reports: Fever, Chills HEENT: Reports: No Symptoms Respiratory: Reports: No Symptoms Cardiovascular: Reports: No Symptoms Endocrine: Reports: No Symptoms GI/Abdominal: Reports: No Symptoms : Reports: No Symptoms, Other (past history of frequen infections) Musculoskeletal: Reports: Muscle Pain Neurological: Reports: No Symptoms Psychiatric: Reports: No Symptoms ED EXAM,LOWER BACK PAIN/INJURY - Physical Exam Text/Narrative:: pt arrived with shaking chills. She has a past history of kidney diseae and was dialized at one time. She did have a tick bite 1 week ago. She has joint pain and alot of back pain. Exam Limited By: No Limitations General Appearance: Alert, Mild Distress, Other (pt is chilling markedly. ) Ears: Normal TMs Nose: Normal Inspection Throat/Mouth: Normal Inspection Head: Atraumatic Neck: Normal Inspection Respiratory/Chest: No Respiratory Distress Cardiovascular: Regular Rate, Rhythm, Tachycardia GI/Abdominal: Soft, Other (mild suprapupic tenderness) (Female) Exam: Deferred Rectal (Female) Exam: Deferred Back Exam: Other (pt is tender accross the back) Extremities: Normal Inspection Neurological: Alert, Oriented x 3 Psychiatric: Anxious Course - Vital Signs Last Recorded V/S: Last Vital Signs Temp 36.1 C 07/29/20 06:18 Pulse 97 07/29/20 06:00 Resp 18 07/29/20 06:00 BP 119/83 07/29/20 06:00 Pulse Ox 100 07/29/20 06:00 - Orders/Labs/Meds Labs: Laboratory Tests 07/29/20 07/29/20 07/29/20 Range/Units 06:10 06:30 07:02 WBC (4.5-11.0) K/uL RBC (3.30-5.50) M/uL Hgb (12.0-15.0) g/dL Hct (36.0-48.0) % MCV (80-98) fL MCH (27-31) pg MCHC (32-36) % Plt Count (150-400) K/uL Neut % (Auto) (36-66) % Lymph % (Auto) (24-44) % Cheyenne % (Auto) (2-6) % Eos % (Auto) (2-4) % Baso % (Auto) (0-1) % Sodium (140-148) mmol/L Potassium (3.6-5.2) mmol/L Chloride (100-108) mmol/L Carbon Dioxide (21-32) mmol/L Anion Gap (5.0-14.0) mmol/L BUN (7-18) mg/dL Creatinine (0.6-1.0) mg/dL Est Cr Clr Drug Dosing mL/min Estimated GFR (MDRD) (>60) Glucose (74-106) mg/dL Lactic Acid 1.3 (0.4-2.0) mmol/L Calcium (8.5-10.1) mg/dL Magnesium (1.8-2.4) mg/dL Total Bilirubin (0.2-1.0) mg/dL AST (15-37) U/L ALT (12-78) U/L Alkaline Phosphatase (46-116) U/L Total Protein (6.4-8.2) g/dL Albumin (3.4-5.0) g/dL Globulin (2.3-3.5) g/dL Albumin/Globulin Ratio (1.2-2.2) Urine Color Yellow (YELLOW) Urine Appearance Clear (CLEAR) Urine pH 6.0 (5.0-8.0) Ur Specific Dauphin >= 1.030 (1.008-1.030) Urine Protein Negative (NEGATIVE) mg/dL Urine Glucose (UA) Negative (NEGATIVE) mg/dL Urine Ketones Negative (NEGATIVE) mg/dL Urine Occult Blood Negative (NEGATIVE) Urine Nitrite Negative (NEGATIVE) Urine Bilirubin Negative (NEGATIVE) Urine Urobilinogen 0.2 (0.2-1.0) EU/dL Ur Leukocyte Esterase Negative (NEGATIVE) Urine RBC 0-5 (0-5) Urine WBC 0-5 (0-5) Ur Epithelial Cells Few Amorphous Sediment Not seen Urine Bacteria Few Urine Mucus Not seen Babesia microti IgG Ab (Neg:<1:10) Babesia microti IgM Ab (Neg:<1:10) Lyme Disease IgG/IgM <0.91 (0.00-0.90) ISR HGE IgG Antibody (Neg:<1:64) HGE IgM Antibody (Neg:<1:20) 07/29/20 07/29/20 07/29/20 Range/Units 07:02 07:02 07:20 WBC 7.2 (4.5-11.0) K/uL RBC 5.21 (3.30-5.50) M/uL Hgb 13.9 D (12.0-15.0) g/dL Hct 43.6 (36.0-48.0) % MCV 84 (80-98) fL MCH 27 (27-31) pg MCHC 32 (32-36) % Plt Count 359 (150-400) K/uL Neut % (Auto) 51 (36-66) % Lymph % (Auto) 36 (24-44) % Cheyenne % (Auto) 10 H (2-6) % Eos % (Auto) 3 (2-4) % Baso % (Auto) 0 (0-1) % Sodium (140-148) mmol/L Potassium (3.6-5.2) mmol/L Chloride (100-108) mmol/L Carbon Dioxide (21-32) mmol/L Anion Gap (5.0-14.0) mmol/L BUN (7-18) mg/dL Creatinine (0.6-1.0) mg/dL Est Cr Clr Drug Dosing mL/min Estimated GFR (MDRD) (>60) Glucose (74-106) mg/dL Lactic Acid (0.4-2.0) mmol/L Calcium (8.5-10.1) mg/dL Magnesium (1.8-2.4) mg/dL Total Bilirubin (0.2-1.0) mg/dL AST (15-37) U/L ALT (12-78) U/L Alkaline Phosphatase (46-116) U/L Total Protein (6.4-8.2) g/dL Albumin (3.4-5.0) g/dL Globulin (2.3-3.5) g/dL Albumin/Globulin Ratio (1.2-2.2) Urine Color (YELLOW) Urine Appearance (CLEAR) Urine pH (5.0-8.0) Ur Specific Dauphin (1.008-1.030) Urine Protein (NEGATIVE) mg/dL Urine Glucose (UA) (NEGATIVE) mg/dL Urine Ketones (NEGATIVE) mg/dL Urine Occult Blood (NEGATIVE) Urine Nitrite (NEGATIVE) Urine Bilirubin (NEGATIVE) Urine Urobilinogen (0.2-1.0) EU/dL Ur Leukocyte Esterase (NEGATIVE) Urine RBC (0-5) Urine WBC (0-5) Ur Epithelial Cells Amorphous Sediment Urine Bacteria Urine Mucus Babesia microti IgG Ab <1:10 (Neg:<1:10) Babesia microti IgM Ab <1:10 (Neg:<1:10) Lyme Disease IgG/IgM (0.00-0.90) ISR HGE IgG Antibody Negative (Neg:<1:64) HGE IgM Antibody Negative (Neg:<1:20) 07/29/20 Range/Units 07:20 WBC (4.5-11.0) K/uL RBC (3.30-5.50) M/uL Hgb (12.0-15.0) g/dL Hct (36.0-48.0) % MCV (80-98) fL MCH (27-31) pg MCHC (32-36) % Plt Count (150-400) K/uL Neut % (Auto) (36-66) % Lymph % (Auto) (24-44) % [place] % (Auto) (2-6) % Eos % (Auto) (2-4) % Baso % (Auto) (0-1) % Sodium 142 (140-148) mmol/L Potassium 3.3 L (3.6-5.2) mmol/L Chloride 107 (100-108) mmol/L Carbon Dioxide 24 (21-32) mmol/L Anion Gap 14.3 H (5.0-14.0) mmol/L BUN 6 L D (7-18) mg/dL Creatinine 0.7 (0.6-1.0) mg/dL Est Cr Clr Drug Dosing 111.00 mL/min Estimated GFR (MDRD) > 60 (>60) Glucose 91 (74-106) mg/dL Lactic Acid (0.4-2.0) mmol/L Calcium 8.2 L (8.5-10.1) mg/dL Magnesium 1.5 L (1.8-2.4) mg/dL Total Bilirubin 0.3 (0.2-1.0) mg/dL AST 17 (15-37) U/L ALT 24 (12-78) U/L Alkaline Phosphatase 98 (46-116) U/L Total Protein 5.7 L (6.4-8.2) g/dL Albumin 2.7 L (3.4-5.0) g/dL Globulin 3.0 (2.3-3.5) g/dL Albumin/Globulin Ratio 0.9 L (1.2-2.2) Urine Color (YELLOW) Urine Appearance (CLEAR) Urine pH (5.0-8.0) Ur Specific Dauphin (1.008-1.030) Urine Protein (NEGATIVE) mg/dL Urine Glucose (UA) (NEGATIVE) mg/dL Urine Ketones (NEGATIVE) mg/dL Urine Occult Blood (NEGATIVE) Urine Nitrite (NEGATIVE) Urine Bilirubin (NEGATIVE) Urine Urobilinogen (0.2-1.0) EU/dL Ur Leukocyte Esterase (NEGATIVE) Urine RBC (0-5) Urine WBC (0-5) Ur Epithelial Cells Amorphous Sediment Urine Bacteria Urine Mucus Babesia microti IgG Ab (Neg:<1:10) Babesia microti IgM Ab (Neg:<1:10) Lyme Disease IgG/IgM (0.00-0.90) ISR HGE IgG Antibody (Neg:<1:64) HGE IgM Antibody (Neg:<1:20) Meds: Medications Discontinued Medications Generic Name Dose Route Start Last Admin Trade Name Freq PRN Reason Stop Dose Admin Hydromorphone HCl 0.5 mg 07/29/20 06:28 07/29/20 06:33 Hydromorphone 0.5 Mg/0.5 Ml Syringe IVPUSH 07/29/20 06:29 0.5 mg ONETIME ONE Administration Sodium Chloride 1,000 mls @ 999 mls/hr 07/29/20 06:30 07/29/20 06:27 Normal Saline IV 999 mls/hr ASDIRECTED ALEX Administration Sodium Chloride 1,000 mls @ 300 mls/hr 07/29/20 07:30 Normal Saline IV ASDIRECTED ALEX Ondansetron HCl 4 mg 07/29/20 06:28 07/29/20 06:32 Ondansetron 4 Mg/2 Ml Sdv IVPUSH 07/29/20 06:29 4 mg ONETIME ONE Administration Sepsis Event Note (ED) - Evaluation Sepsis Screening Result: No Definite Risk
[2020-07-29] MEDS ORDERED: Ondansetron 4 MG/2 ML SDV IVPUSH ONE (06:28)
[2020-07-29] MEDS ORDERED: HYDROmorphone 0.5 MG/0.5 ML Syringe IVPUSH ONE (06:28)
[2020-07-29] MEDS ORDERED: Sodium Chloride 0.9% 1,000 ML IV SCH ×2 (06:30→07:30)
[2020-07-31 10:13] LABS: LYME IGG/IGM AB <0.91 ISR (0.00-0.90)
[2020-07-31 15:13] LABS: HGE IGG TITER Negative (Neg:<1:64); HGE IGM TITER Negative (Neg:<1:20)
[2020-08-01 16:12] LABS: BABESIA MICROTI IGG <1:10 (Neg:<1:10); BABESIA MICROTI IGM <1:10 (Neg:<1:10)
== END 2020-07-29 08:15 | disposition home or self-care (01) ==
LOC: JP.ED 05:46
DX: M54.5 Low back pain (principal); R68.83 Chills (without fever); J45.909 Unspecified asthma, uncomplicated; N18.9 Chronic kidney disease, unspecified; E11.22 Type 2 diabetes mellitus with diabetic chronic kidney disease; E66.9 Obesity, unspecified; Z68.31 Body mass index [BMI] 31.0-31.9, adult; Z88.1 Allergy status to other antibiotic agents; Z88.5 Allergy status to narcotic agent; Z79.4 Long term (current) use of insulin; Z72.0 Tobacco use
CPT/HCPCS: 36415; 80053; 81001; 83605; 83735; 85025; 86618; 86666; 86753; 87040; 96374; 96375; 99283; 99284; J1170; J2405; J7030

== ENCOUNTER 2020-07-29 22:12 | Emergency (ER) | payer MEDICAID ==
[2020-07-29] MEDS ORDERED: Ketorolac 60 MG/2 ML SDV IM ONE (23:00)
--- NOTE | 2020-07-29 23:02 | EDM.PDOC ---
ED HPI GENERAL MEDICAL PROBLEM - General Chief Complaint: Back Pain or Injury Stated Complaint: LOWER BACK PAIN Time Seen by Provider: 07/29/20 22:47 Source of Information: Reports: Patient History Limitations: Reports: No Limitations - History of Present Illness INITIAL COMMENTS - FREE TEXT/NARRATIVE: Patient states that she felt weak today and subsequently slipped, falling down 5-stairs on her bottom/tailbone. When I entered the room she was up to the BR without assistance and ambulated back to the bed. It was not until she was in the bed that she began acting as if her pain was overwhelming, unable to sit-up or move for exam. Friend at bedside states that they have tried everything today for pain--ibuprofen, alleve, acetaminophen, ice/heat, lidocaine patches. She states she gave actaminophen 1500mg last at 2000; patient states she took ibuprofen 400mg last at 1400. She states she was in the ER yesterday for her chronic low back pain (this record was reviewed and noted for back pain , body pain, tick exposure, pending tick borne labs currently treated with doxy). She states pain is 8/10, sharp/stabbing PMH/Meds--reviewed Allergies--cefprozil, tramadol lower back Pain Score (Numeric/FACES): 8 - Related Data Allergies Allergy/AdvReac Type Severity Reaction Status Date / Time cefprozil Allergy Airway Verified 07/29/20 22:44 Tightness tramadol Allergy Hives Verified 07/29/20 22:44 Home Meds: Home Meds Albuterol [Ventolin HFA] 1 - 2 inh INH ASDIRECTED PRN 07/02/20 [History] Albuterol/Ipratropium [DuoNeb 3.0-0.5 MG/3 ML] 3 ml INH ASDIRECTED PRN 07/02/20 [History] Formoterol/Mometasone [Dulera 100 MCG/5 MCG] 2 puff INH BID 07/02/20 [History] Insulin Aspart [NovoLOG] 0 - 4 units SUBCUT ASDIRECTED 07/02/20 [History] Montelukast [Singulair] 10 mg PO DAILY 07/02/20 [History] Clotrimazole [Mycelex] 10 mg PO 5XDAY #35 josemanuel 07/06/20 [Rx] Doxycycline [Doxycycline Hyclate] 100 mg PO BID 07/29/20 [History] Past Medical History HEENT History: Reports: Impaired Vision, Other (See Below) Other HEENT History: glasses Cardiovascular History: Reports: None Respiratory History: Reports: Asthma, Pneumonia, Recurrent Gastrointestinal History: Reports: GERD Genitourinary History: Reports: Chronic Renal Insuffiency, Pyelonephritis, Other (See Below) Other Genitourinary History: dialysis for one month due to decreased kidney function SUPERINTENDENT METERS History: Reports: None Neurological History: Reports: Concussion Endocrine/Metabolic History: Reports: Diabetes, Type II, Obesity/BMI 30+ - Infectious Disease History Infectious Disease History: Reports: Chicken Pox - Past Surgical History GI Surgical History: Reports: Cholecystectomy Social & Family History - Tobacco Use Tobacco Use Status *Q: Current Every Day Tobacco User Years of Tobacco use: 24 Packs/Tins Daily: 0.3 - Caffeine Use Caffeine Use: Reports: Soda - Recreational Drug Use Recreational Drug Use: No - Living Situation & Occupation Living situation: Reports: Occupation: Unemployed ( to her , lives in [place]. was in Care Home for 10 months, now at home with home monitoring. She did notify DOC about her current admission.) ED ROS GENERAL - Review of Systems Review Of Systems: See Below Constitutional: Reports: No Symptoms HEENT: Reports: No Symptoms Respiratory: Reports: No Symptoms Cardiovascular: Reports: No Symptoms Endocrine: Reports: No Symptoms GI/Abdominal: Reports: No Symptoms : Reports: No Symptoms Musculoskeletal: Reports: Other (tailbone pain after fall landing on her bottom down 5-stairs) Skin: Reports: No Symptoms Neurological: Reports: No Symptoms Psychiatric: Reports: No Symptoms Hematologic/Lymphatic: Reports: No Symptoms Immunologic: Reports: No Symptoms ED EXAM,LOWER BACK PAIN/INJURY - Physical Exam Exam: See Below Exam Limited By: No Limitations General Appearance: Alert, WD/WN, Moderate Distress (secondary to tailbone pain) Eye Exam: Bilateral Eye: Normal Inspection Ears: Normal External Exam Nose: Normal Inspection Throat/Mouth: Normal Inspection, Normal Voice, No Airway Compromise Head: Atraumatic, Normocephalic Neck: Normal Inspection, Supple, Full Range of Motion Respiratory/Chest: No Respiratory Distress, Lungs Clear, Normal Breath Sounds Cardiovascular: Normal Peripheral Pulses, Regular Rate, Rhythm, No Edema, No Murmur GI/Abdominal: Normal Bowel Sounds, Soft, Non-Tender (Female) Exam: Deferred Rectal (Female) Exam: Deferred Back Exam: Normal Inspection, Full Range of Motion, Other (tenderness to palpatory exam of tailbone/sacrum; no eccymosis noted) Extremities: Normal Inspection, Normal Range of Motion, No Pedal Edema, Normal Capillary Refill Neurological: Alert, Normal Mood/Affect, Normal Gait, Oriented x 3 Psychiatric: Normal Affect, Normal Mood Skin Exam: Warm, Dry, Intact, Normal Color Course - Vital Signs Text/Narrative:: 2301--patient reports taking 1500mg acetaminophen at 2000 & 400mg ibuprofen at 1400; additionally friend at bedside reports she has been using heat/ice and lidocaine patches but not helping. d/w them that I can give tordol IM since last ibuprofen at 1400. verbalized understanding/agreement Last Recorded V/S: Last Vital Signs Temp 97.7 F 07/29/20 22:46 Pulse 66 07/29/20 22:46 Resp 18 07/29/20 22:46 BP 119/81 07/29/20 22:46 Pulse Ox 99 07/29/20 22:46 - Orders/Labs/Meds Meds: Medications Discontinued Medications Generic Name Dose Route Start Last Admin Trade Name Freq PRN Reason Stop Dose Admin Ketorolac Tromethamine 60 mg 07/29/20 23:00 07/29/20 23:09 Ketorolac 60 Mg/2 Ml Sdv IM 07/29/20 23:01 60 mg ONETIME ONE Administration Departure - Departure Time of Disposition: 23:24 Disposition: Home, Self-Care 01 Condition: Good Clinical Impression: Tailbone injury, Fall down stairs - Discharge Information *PRESCRIPTION DRUG MONITORING PROGRAM REVIEWED*: Not Applicable *COPY OF PRESCRIPTION DRUG MONITORING REPORT IN PATIENT MATT: Not Applicable Instructions: Tailbone Injury, [id number] Referrals: Marian Castro DO [Primary Care Provider] - Forms: ED Department Discharge Additional Instructions: you may use ice or heat as you find comfortable/helpful you may use ibuprofen and acetaminophen--please follow directions of the bottles, do not take more medication than what is recommended in the label directions follow up with your family doctor/primary care clinic for further concerns chronic pain is not managed in the ER but you must address through your family doctor/primary care clinic Sepsis Event Note (ED) - Evaluation Sepsis Screening Result: No Definite Risk - Focused Exam Vital Signs: Vital Signs Temp Pulse Resp BP Pulse Ox 07/29/20 22:46 97.7 F 66 18 119/81 99 07/29/20 22:35 97.7 F 66 18 119/81 99
== END 2020-07-30 00:03 | disposition home or self-care (01) ==
LOC: JP.ED 22:12
DX: S39.92XA Unspecified injury of lower back, initial encounter (principal); E11.9 Type 2 diabetes mellitus without complications; E66.9 Obesity, unspecified; Z68.30 Body mass index [BMI] 30.0-30.9, adult; Z88.5 Allergy status to narcotic agent; Z88.1 Allergy status to other antibiotic agents; Z79.4 Long term (current) use of insulin; Z72.0 Tobacco use; W10.9XXA Fall (on) (from) unspecified stairs and steps, initial encounter
CPT/HCPCS: 96372; 99283; J1885

== ENCOUNTER 2020-11-02 21:36 | Emergency (ER) | payer MEDICAID ==
[2020-11-03] MEDS ORDERED: Albuterol/Ipratropium 3.0-0.5 MG/3 ML Neb Soln ONE (00:04)
[2020-11-03] MEDS ORDERED: Albuterol/Ipratropium 3.0-0.5 MG/3 ML Neb Soln NEB ONE (00:05)
--- NOTE | 2020-11-03 00:59 | EDM.PDOC ---
ED HPI GENERAL MEDICAL PROBLEM - General Chief Complaint: Respiratory Problem Stated Complaint: SOB,CHEST PAIN Time Seen by Provider: 11/02/20 23:26 Source of Information: Reports: Patient History Limitations: Reports: No Limitations - History of Present Illness INITIAL COMMENTS - FREE TEXT/NARRATIVE: Sia is a 39-year-old female presenting to the ED for evaluation of increasing shortness of breath. The patient reports that she has a history of recurring pneumonia and has been hospitalized for this in the past. She is on continuous home oxygen but states over the last several days she has had increased the flow to maintain her SPO2 above 90%. She has had increasing shortness of breath with any activity. She has been seen by a junior systems analyst at [facility] and underwent a pulmonary function test that she reports the junior systems analyst stated that looked like she had COPD when she was not medicated and looked like she had asthma when she was medicated. She reports that her chest x-rays always look like she has Covid lung, however, she always test negative for COVID-19. She denies any fever or chills. She has had a nonproductive cough. She has had no loss of taste or smell. She denies any headache or body aches. She does have some chest pain but this is secondary to coughing. - Related Data Allergies Allergy/AdvReac Type Severity Reaction Status Date / Time cefprozil Allergy Airway Verified 11/02/20 21:52 Tightness tramadol Allergy Hives Verified 11/02/20 21:52 Home Meds: Home Meds Albuterol [Ventolin HFA] 1 - 2 inh INH ASDIRECTED PRN 07/02/20 [History] Albuterol/Ipratropium [DuoNeb 3.0-0.5 MG/3 ML] 3 ml INH ASDIRECTED PRN 07/02/20 [History] Formoterol/Mometasone [Dulera 100 MCG/5 MCG] 2 puff INH BID 07/02/20 [History] Insulin Aspart [NovoLOG] 0 - 4 units SUBCUT ASDIRECTED 07/02/20 [History] Montelukast [Singulair] 10 mg PO DAILY 07/02/20 [History] Past Medical History HEENT History: Reports: Impaired Vision, Other (See Below) Other HEENT History: glasses Cardiovascular History: Reports: None Respiratory History: Reports: Asthma, Pneumonia, Recurrent Other Respiratory History: pneumonia x6 last round of rx 1 mo ago Gastrointestinal History: Reports: GERD Genitourinary History: Reports: Chronic Renal Insuffiency, Pyelonephritis, Other (See Below) Other Genitourinary History: dialysis for one month due to decreased kidney function SUPERVISOR NURSE History: Reports: None Neurological History: Reports: Concussion Endocrine/Metabolic History: Reports: Diabetes, Type II, Obesity/BMI 30+ - Infectious Disease History Infectious Disease History: Reports: Chicken Pox - Past Surgical History GI Surgical History: Reports: Cholecystectomy Social & Family History - Tobacco Use Tobacco Use Status *Q: Never Tobacco User - Caffeine Use Caffeine Use: Reports: Soda - Living Situation & Occupation Living situation: Reports: Occupation: Unemployed ( to her , lives in [place]. was in [facility] for 10 months, now at home with home monitoring. She did notify DOC about her current admission.) ED ROS GENERAL - Review of Systems Review Of Systems: See Below Constitutional: Reports: No Symptoms HEENT: Reports: No Symptoms Respiratory: Reports: Shortness of Breath, Wheezing, Cough Cardiovascular: Reports: Chest Pain (Secondary to coughing) Endocrine: Reports: No Symptoms GI/Abdominal: Reports: No Symptoms : Reports: No Symptoms Musculoskeletal: Reports: No Symptoms Skin: Reports: No Symptoms Neurological: Reports: No Symptoms Psychiatric: Reports: No Symptoms Hematologic/Lymphatic: Reports: No Symptoms Immunologic: Reports: Other (History of asthma) ED EXAM, GENERAL - Physical Exam Exam: See Below Exam Limited By: No Limitations General Appearance: Alert, Mild Distress Eye Exam: Bilateral Eye: EOMI, PERRL Nose: Normal Inspection, Normal Mucosa Throat/Mouth: Normal Inspection, Normal Lips, Normal Oropharynx, Normal Voice, No Airway Compromise Head: Atraumatic, Normocephalic Neck: Normal Inspection, Supple, Non-Tender, Full Range of Motion Respiratory/Chest: No Respiratory Distress, Wheezing (Significant diffuse bilateral inspiratory and expiratory wheezes. Prolonged expiration phase.), Accessory Muscle Use (Mild accessory muscle use), Prolonged Expiration. No: Retractions Cardiovascular: Normal Peripheral Pulses, Regular Rate, Rhythm, No Murmur Peripheral Pulses: 2+: Radial (L), Radial (R) GI/Abdominal: Normal Bowel Sounds, Soft, Non-Tender, No Distention Extremities: Normal Inspection, No Pedal Edema Neurological: Alert, Oriented, Normal Cognition, No Motor/Sensory Deficits Psychiatric: Normal Affect, Normal Mood Skin Exam: Warm, Dry Lymphatic: No Adenopathy Course - Vital Signs Last Recorded V/S: Last Vital Signs Temp 36.1 C 11/02/20 22:05 Pulse 104 H 11/02/20 22:05 Resp 16 11/02/20 22:05 BP 118/75 11/02/20 22:05 Pulse Ox 93 L 11/02/20 22:05 - Orders/Labs/Meds Orders: Active Orders 24 hr Category Date Time Status RT Aerosol Therapy [RC] ASDIRECTED Care 11/03/20 00:05 Active Chest 2V [CR] Stat Exams 11/02/20 23:27 Taken CORONAVIRUS COVID-19 RAPID [MOLEC] Stat Lab 11/02/20 23:38 Received Labs: Laboratory Tests 11/02/20 11/02/20 11/03/20 Range/Units 23:41 23:41 00:15 WBC 13.6 H (4.5-11.0) K/uL RBC 4.77 (3.30-5.50) M/uL Hgb 13.1 (12.0-15.0) g/dL Hct 40.8 (36.0-48.0) % MCV 86 (80-98) fL MCH 28 (27-31) pg MCHC 32 (32-36) % Plt Count 376 (150-400) K/uL Neut % (Auto) 70.9 H (36-66) % Lymph % (Auto) 13.3 L (24-44) % Kingfisher % (Auto) 5.2 (2-6) % Eos % (Auto) 10.4 H (2-4) % Baso % (Auto) 0.2 (0-1) % Puncture Site L radial ABG pH 7.406 (7.350-7.450) ABG pCO2 43.2 H (35.0-42.0) mmHg ABG pO2 65.4 L (75.0-100.0) mmHg ABG HCO3 26.6 H (22.0-26.0) mmol/L ABG Total CO2 23.6 (21.0-25.0) mmol/L ABG O2 Saturation 92.9 L (95.0-98.0) % ABG O2 Content 17.4 (15.0-23.0) %vol ABG Base Excess 2.1 mm/L ABG Hemoglobin 13.5 (12.0-16.0) g/dL ABG Oxyhemoglobin 91.2 % ABG Carboxyhemoglobin 1.2 (0.0-1.6) % ABG Methemoglobin 0.6 % Black Test Ok O2 Delivery Device Nasal cannula Oxygen Flow Rate 3.0 L Sodium 138 L (140-148) mmol/L Potassium 3.9 (3.6-5.2) mmol/L Chloride 101 (100-108) mmol/L Carbon Dioxide 28 (21-32) mmol/L Anion Gap 12.9 (5.0-14.0) mmol/L BUN 9 (7-18) mg/dL Creatinine 0.7 (0.6-1.0) mg/dL Est Cr Clr Drug Dosing 111.00 mL/min Estimated GFR (MDRD) > 60 (>60) Glucose 104 (74-106) mg/dL Calcium 8.5 (8.5-10.1) mg/dL C-Reactive Protein 17.80 H (0.0-0.3) mg/dL Meds: Medications Discontinued Medications Generic Name Dose Route Start Last Admin Trade Name Freq PRN Reason Stop Dose Admin Albuterol/Ipratropium 3 ml 11/03/20 00:05 11/03/20 00:09 Albuterol/Ipratropium 3.0-0.5 Mg/3 Ml Neb Soln NEB 11/03/20 00:06 3 ml ONETIME ONE Administration Albuterol/Ipratropium Confirm 11/03/20 00:04 11/03/20 00:09 Albuterol/Ipratropium 3.0-0.5 Mg/3 Ml Neb Soln Administered 11/03/20 00:05 Not Given Dose 3 ml .ROUTE .STK-MED ONE - Re-Assessments/Exams Free Text/Narrative Re-Assessment/Exam: 11/03/20 01:11 I reviewed the patient's labs showing a mild leukocytosis at 13.6 with a left shift. Her hemoglobin is 13.1 with hematocrit of 40.8 and a platelet count of 376,000. Her basic metabolic panel is normal. Her C-reactive protein is elevated at 17.8. Arterial blood gas done on 3 L via nasal cannula shows a pH of 7.406, PCO2 of 43.2, PO2 of 65.4 and a bicarbonate of 23.6. This is consistent with a COPD pattern with some mild hypercapnia. I did repeat her chest x-ray showing increased haziness likely secondary to pulmonary fibrosis but no evidence for acute infiltrates. I reviewed her previous CT of the chest and chest x-ray both showing similar patterns. This raises the question as to whether this is a primary pulmonary fibrosis or secondary to her history of smoking or vaping. Also in the differential would be sarcoidosis and carcinoid lung. She does see a junior systems analyst with [facility] but states that he is puzzled as to what is causing her disease. I have seen similar findings linked to vaping in the past. My plan today is that she likely has acute on chronic bronchitis causing increasing wheezing and shortness of breath. We will put her on azithromycin Z- Alfredo as directed. This will not only provide antibiotic coverage for infection but will also have the added benefit of some reduced inflammation in the larger airways. She should continue her nebulized and inhaled therapies as before. We will also place her on prednisone on a 10-day taper course. At this time she is suitable for discharge home in satisfactory condition. The findings were discussed with the patient and all questions were answered prior to discharge. 11/03/20 01:15 I did encourage the patient to follow-up with her primary care provider, Dr. Castro, in 1 week for recheck. Indications to return to the ED were discussed. Departure - Departure Time of Disposition: 00:54 Disposition: Home, Self-Care 01 Clinical Impression: Pulmonary fibrosis, postinflammatory, History of nicotine vaping, History of smoking, Acute exacerbation of chronic bronchitis - Discharge Information Instructions: Pulmonary Fibrosis, Acute Bronchitis, Adult, [id number] Referrals: Marian Castro DO [Primary Care Provider] - Forms: ED Department Discharge Care Plan Goals: Your work-up today has shown that you likely have acute on chronic bronchitis which is a chronic inflammatory condition involving the larger airways. I think that you likely have increased inflammation and a mild infection involving the airways. I did review your previous chest x-rays and CT of the chest and this looks more likely to be pulmonary fibrosis which would fit with what your junior systems analyst reported in your pulmonary function test. I cannot tell you the cause of the pulmonary fibrosis but suspect that the smoking and/or vaping may have contributed. The other possibilities are you may have conditions that are classified as autoimmune called either sarcoidosis or carcinoid lung that cause formation of pulmonary fibrosis which is essentially post inflammation scar tissue. I did not see any evidence today for a pneumonia. I believe that the acute bronchitis is what is causing you to require more oxygen. My plan is to treat you with azithromycin 2 tabs today and then 1 tab a day for the next 4 days. Azithromycin has potent antibiotic properties to treat infection but it also has anti-inflammatory properties to reduce inflammation in the bronchials and larger airways. I am also putting you on a 10-day prednisone taper to further reduce inflammation in the airways. Continue to do your nebs and use your inhaler as before. You may require an increase in your oxygen flow for a short time until the inflammation improves. At this time I do not believe that you require hospitalization. Follow-up with your primary care doctor within the week for recheck. Certainly if you have significant worsening of symptoms, return to the ED for reevaluation. Sepsis Event Note (ED) - Evaluation Sepsis Screening Result: No Definite Risk - Focused Exam Vital Signs: Vital Signs Temp Pulse Resp BP Pulse Ox 11/02/20 22:05 36.1 C 104 H 16 118/75 93 L - Problem List & Annotations (1) Pulmonary fibrosis, postinflammatory SNOMED Code(s): 406315610 Code(s): J84.10 - PULMONARY FIBROSIS, UNSPECIFIED Status: Chronic Priority: Medium Current Visit: Yes (2) History of nicotine vaping SNOMED Code(s): 626225572 Code(s): Z87.891 - PERSONAL HISTORY OF NICOTINE DEPENDENCE Status: Chronic Priority: Medium Current Visit: Yes (3) History of smoking SNOMED Code(s): 036231166 Code(s): Z87.891 - PERSONAL HISTORY OF NICOTINE DEPENDENCE Status: Chronic Priority: Medium Current Visit: Yes (4) Acute exacerbation of chronic bronchitis SNOMED Code(s): 885746291 Code(s): J20.9 - ACUTE BRONCHITIS, UNSPECIFIED; J42 - UNSPECIFIED CHRONIC BRONCHITIS Status: Acute Priority: Medium Current Visit: Yes - Problem List Review Problem List Initiated/Reviewed/Updated: Yes - My Orders Last 24 Hours: My Active Orders 11/02/20 23:27 Chest 2V [CR] Stat 11/02/20 23:38 CORONAVIRUS COVID-19 RAPID [MOLEC] Stat 11/03/20 00:05 RT Aerosol Therapy [RC] ASDIRECTED - Assessment/Plan Last 24 Hours: My Active Orders 11/02/20 23:27 Chest 2V [CR] Stat 11/02/20 23:38 CORONAVIRUS COVID-19 RAPID [MOLEC] Stat 11/03/20 00:05 RT Aerosol Therapy [RC] ASDIRECTED
--- NOTE | 2020-11-03 13:33 | CR ---
CHEST: 2 view CLINICAL HISTORY:Cough and dyspnea COMPARISON:CT chest 07/02/2020 FINDINGS: Heart size and pulmonary vascular are normal. There is diffuse increase in lung markings. The groundglass opacities are seen on the prior CT suggesting a pneumonitis. Impression: Diffuse increase in lung markings bilaterally left greater than right. This may represent a pneumonitis
== END 2020-11-03 01:30 | disposition home or self-care (01) ==
LOC: JP.ED 21:36
DX: J84.10 Pulmonary fibrosis, unspecified (principal); J20.9 Acute bronchitis, unspecified; J42 Unspecified chronic bronchitis; J45.909 Unspecified asthma, uncomplicated; E11.22 Type 2 diabetes mellitus with diabetic chronic kidney disease; N18.9 Chronic kidney disease, unspecified; E66.9 Obesity, unspecified; Z68.30 Body mass index [BMI] 30.0-30.9, adult; Z87.891 Personal history of nicotine dependence; Z88.1 Allergy status to other antibiotic agents; Z88.5 Allergy status to narcotic agent; Z20.822 Contact with and (suspected) exposure to COVID-19
CPT/HCPCS: 36415; 36600; 71046; 71046-26; 80048; 82803; 85025; 86140; 94640; 99285-25; J7620-GY; U0002